=== PATIENT | female | born 2000 | race Caucasian/White ===

== ENCOUNTER 2019-11-29 13:49 | Emergency (ER) | payer OTHER, SELFPAY ==
[2019-11-29 13:52] VITALS: BP 124/65; PULSE 140; RESP 24; TEMP 36.4; O2SAT 99; BMI 20.6
--- NOTE | 2019-11-29 14:01 | W.ED.FEMALGU ---
HPI - Female Genitourinary General: Chief complaint: Vaginal Bleeding Stated complaint: possible misscarige Time Seen by Provider: 11/29/19 14:01 History of Present Illness: HPI Narrative: 18-year-old female G0, P0. States she had a normal period 2 weeks ago she stopped taking her control pills 40 days ago and this morning she began having abdominal pain cramping like a very heavy. She is worried she may be . She denies any dysuria urgency or flank pain. She is extremely anxious when seen today MD elicited complaint: vaginal bleeding Onset (ago): hour(s) Severity: moderate Female Urogenital Radiation: Suprapubic Quality of pain: cramping Consistency: constant Vaginal discharge: none Vaginal bleeding: heavy Urinary symptoms: Dysuria Exacerbating factors: none Relieving factors: none Associated symptoms: Deny abdominal pain, short of breath, fevers/chills, headache(s), nausea, rash, seizures, syncope, vaginal discharge or weakness Treatment prior to arrival: none Sexual activity: Yes Possible : unsure if Date of Last Menstrual Period: 11/27/19 Review of Systems Const: Denies: fever(s), chills, body aches, change in appetite, fatigue or malaise ENMT: Denies: throat pain, ear or mastoid pain, nasal discharge or nasal congestion Card: Denies: syncope Resp: Denies: dyspnea, productive cough or non-productive cough GI: Denies: abdominal pain or nausea : Denies: vaginal discharge Skin/Breast: Denies: rash or pruritus Neuro: Denies: headache(s) PFS ED PFSH: Medical History (Updated 11/29/19 @ 15:26 by Enrique Gorman DO) No significant past medical history Surgical History (Updated 11/29/19 @ 14:34 by Enrique Gorman DO) No significant past surgical history Social History (Updated 11/29/19 @ 14:34 by Enrique Gorman DO) Smoking and tobacco status: never smoked Alcohol intake: current Alcohol intake frequency: 0-2 Drinks per Day Additional social history: Patient uses vaping Female Reproductive History: Date of last menstrual period: 11/27/19 Physical Exam Const: COMMON NORMALS: no acute distress GENERAL APPEARANCE: cooperative and comfortable ORIENTATION/CONSCIOUSNESS: Yes awake, Yes oriented to person, Yes oriented to place and Yes oriented to time HENMT: COMMON NORMALS: normocephalic, atraumatic and hearing grossly normal bilaterally HEAD & SCALP: normocephalic and atraumatic Eye: COMMON NORMALS: Equal, round and reactive pupils present, EOMs intact bilaterally, conjunctivae normal and no scleral icterus CONJUNCTIVA: Yes conjunctivae normal PUPIL: Yes Equal, round and reactive pupils present Neck/C-Spine: COMMON NORMALS: no JVD Resp: COMMON NORMALS: normal respiratory effort, No retractions, No use of accessory muscles and clear to auscultation bilaterally AUSCULTATION: clear to auscultation bilaterally Cardio: COMMON NORMALS: no JVD, regular rate, regular rhythm and No murmurs present (Cardio) RATE: regular rate RHYTHM: regular rhythm GI: COMMON NORMALS: Soft to palpation and No hepatosplenomegaly present AUSCULTATION: Yes normoactive bowel sounds PALPATION: Yes Soft to palpation, No Tenderness to palpation present (GI), No Guarding due to palpation present (GI) and Yes No hepatosplenomegaly present Extremity: COMMON NORMALS: normal to inspection, capillary refill normal, no clubbing, cyanosis or edema, no calf tenderness and no pedal edema Neuro: SENSORIUM/ORIENTATION: Yes oriented to person, Yes oriented to place and Yes oriented to time Skin: COMMON NORMALS: no rashes or lesions noted GENERAL SKIN EXAM: no rashes or lesions noted Course Vital Signs: Vital signs: Vital Signs Temperature 97.6 F 11/29/19 13:52 Pulse Rate 92 11/29/19 15:36 Respiratory Rate 16 11/29/19 15:36 Blood Pressure 111/66 11/29/19 15:36 Pulse Oximetry 97 11/29/19 15:36 MDM - Female MDM Narrative: Medical decision making narrative: test negative. With a serum quant less than 5. Discussed with the patient that missing the control is probably what precipitated this. Recommend allowing this. To finish and then start a new package of oral contraceptive pills. Lab Data: Labs: Lab Results 11/29/19 11/29/19 11/29/19 Range/Units 14:25 14:25 14:25 WBC 11.3 (4.5-13.0) 10^3/ uL RBC 4.25 (4.1-5.3) 10^6/u L Hgb 12.8 (11.5-15.3) g/dL Hct 39.2 (37.0-47.0) % MCV 92.2 (81-99) fL MCH 30.1 (28.0-34.0) pg MCHC 32.7 (30.0-36.0) g/dL RDW 12.7 (12.1-15.1) % Plt Count 288 (130-400) 10^3/c mm MPV 8.7 (7.4-10.4) fL Neut % (Auto) 79.7 % Lymph % (Auto) 15.4 % [place] % (Auto) 4.2 % Eos % (Auto) 0.0 % Baso % (Auto) 0.4 % Neut # (Auto) 9.04 H (1.8-8.0) 10^3/u L Lymph # (Auto) 1.7 (1.5-6.5) 10^3/u L [place] # (Auto) 0.5 (0.2-0.9) 10^3/u L Eos # (Auto) 0.0 (0.0-0.8) 10^3/u L Baso # (Auto) 0.0 (0.0-0.1) 10^3/u L Nucleated RBC % (a uto) 0 % Nucleated RBCs # 0.0 /100WBC PT 14.70 (12.1-14.9) SECO NDS INR 1.12 (0.8-1.2) APTT 29.0 (23.9-36.7) SECO NDS Sodium 137 (136-145) mmol/L Potassium 4.4 (3.5-5.1) mmol/L Chloride 100 (98-107) mmol/L Carbon Dioxide 16 L (22-29) mmol/L Anion Gap 25.4 H (5-19) BUN 9 (6-20) mg/dL Creatinine 0.9 (0.5-0.9) mg/dL GFR Calculation 79.8 L (90-130) mL/min Glucose 95 (65-115) mg/dL Calculated Osmolal ity 280 L (285-295) mOsm/k g Calcium 8.8 (8.5-10.5) mg/dL Total Bilirubin 0.5 (0.15-1.2) mg/dL AST 55 H (0-32) U/L ALT 45 H (0-33) U/L Alkaline Phosphata se 65 (35-105) IU/L Total Protein 7.5 (6.6-8.7) g/dL Albumin 4.6 (3.5-5.2) g/dL Globulin 2.9 (1.3-4.6) g/dL Ser , Oliver i-Qnt 0.50 mIU/mL Blood Type Rho(D) Type 11/29/19 Range/Units 14:25 WBC (4.5-13.0) 10^3/ uL RBC (4.1-5.3) 10^6/u L Hgb (11.5-15.3) g/dL Hct (37.0-47.0) % MCV (81-99) fL MCH (28.0-34.0) pg MCHC (30.0-36.0) g/dL RDW (12.1-15.1) % Plt Count (130-400) 10^3/c mm MPV (7.4-10.4) fL Neut % (Auto) % Lymph % (Auto) % [place] % (Auto) % Eos % (Auto) % Baso % (Auto) % Neut # (Auto) (1.8-8.0) 10^3/u L Lymph # (Auto) (1.5-6.5) 10^3/u L [place] # (Auto) (0.2-0.9) 10^3/u L Eos # (Auto) (0.0-0.8) 10^3/u L Baso # (Auto) (0.0-0.1) 10^3/u L Nucleated RBC % (a uto) % Nucleated RBCs # /100WBC PT (12.1-14.9) SECO NDS INR (0.8-1.2) APTT (23.9-36.7) SECO NDS Sodium (136-145) mmol/L Potassium (3.5-5.1) mmol/L Chloride (98-107) mmol/L Carbon Dioxide (22-29) mmol/L Anion Gap (5-19) BUN (6-20) mg/dL Creatinine (0.5-0.9) mg/dL GFR Calculation (90-130) mL/min Glucose (65-115) mg/dL Calculated Osmolal ity (285-295) mOsm/k g Calcium (8.5-10.5) mg/dL Total Bilirubin (0.15-1.2) mg/dL AST (0-32) U/L ALT (0-33) U/L Alkaline Phosphata se (35-105) IU/L Total Protein (6.6-8.7) g/dL Albumin (3.5-5.2) g/dL Globulin (1.3-4.6) g/dL Ser , Oliver i-Qnt mIU/mL Blood Type A Positive Rho(D) Type Positive Discharge Plan Discharge Patient Disposition: Home Clinical Impression: Menometrorrhagia Condition: Stable Prescriptions: No Action Midol 500-25 mg Tablet 2 tab PO PRN RF: 0 ibuprofen 200 mg Tablet 400 mg PO PRN RF: 0 Ortho Tri-Cyclen (28) 0.18/0.215/0.25 mg-35 mcg (28) Tablet 1 tab PO DAILY RF: 0 hydroxyzine pamoate 25 mg Capsule See Rx Instructions .ROUTE .COMPLEX RF: 0 escitalopram oxalate 10 mg tablet 10 mg PO DAILY RF: 0 Discharge Orders: Discharge Order (Routine); Ordered 11/29/19 Ordered By: Enrique Gorman Referrals: Matt Ray MD [Primary Care Provider] - Discharge Diet: Usual diet Discharge Activity: Resume usual activity Activity Restrictions/Additional Instructions: When vaginal bleeding stopped start a new pack of oral contraceptive pills Discharge Date/Time: 11/29/19 15:36 Coding Level of Care Code ED 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
[2019-11-29 14:38] LABS: Basophils % 0.4 %; Hematocrit 39.2 % (37.0-47.0); Hemoglobin 12.8 g/dL (11.5-15.3); Lymphocytes # 1.7 10^3/uL (1.5-6.5); Lymphocytes % 15.4 %; Mean Corpuscular HGB Conc 32.7 g/dL (30.0-36.0); Mean Corpuscular Hemoglobin 30.1 pg (28.0-34.0); Mean Corpuscular Volume 92.2 fL (81-99); Mean Platelet Volume 8.7 fL (7.4-10.4); Monocytes # 0.5 10^3/uL (0.2-0.9); Monocytes % 4.2 %; Neutrophils # 9.04 10^3/uL (1.8-8.0); Neutrophils % 79.7 %; Nucleated Red Blood Cells % 0 %; Platelet Count 288 10^3/cmm (130-400); Red Blood Count 4.25 10^6/uL (4.1-5.3); Red Cell Distribution Width 12.7 % (12.1-15.1); White Blood Count 11.3 10^3/uL (4.5-13.0)
[2019-11-29 15:04] LABS: INR 1.12 (0.8-1.2)
[2019-11-29 15:13] LABS: Alanine Aminotransferase 45 U/L (0-33); Albumin Level 4.6 g/dL (3.5-5.2); Alkaline Phosphatase 65 IU/L (35-105); Anion Gap 25.4 (5-19); Aspartate Amino Transferase 55 U/L (0-32); Blood Urea Nitrogen 9 mg/dL (6-20); Calcium 8.8 mg/dL (8.5-10.5); Carbon Dioxide 16 mmol/L (22-29); Chloride 100 mmol/L (98-107); Globulin 2.9 g/dL (1.3-4.6); Glomerular Filtration Rate 79.8 mL/min (90-130); Glucose 95 mg/dL (65-115); Osmolality Calculated 280 mOsm/kg (285-295); Potassium 4.4 mmol/L (3.5-5.1); Sodium 137 mmol/L (136-145); Total Bilirubin 0.5 mg/dL (0.15-1.2); Total Protein 7.5 g/dL (6.6-8.7)
[2019-11-29 15:36] VITALS: BP 111/66; PULSE 92; RESP 16; O2SAT 97
== END 2019-11-29 15:36 | disposition home or self-care (01) ==
PROVIDERS: Emergency Provider Family Medicine; PCP Family Medicine
DX: N92.1 Excessive and frequent menstruation with irregular cycle (principal)
CPT/HCPCS: 12345; 80053; 84702; 85025; 85610; 85730; 86900; 99283

== ENCOUNTER → 2019-12-27 13:55 | Outpatient (BNVA) | payer BC, SELFPAY | PROVIDERS: PCP Family Medicine; Visit Provider Family Medicine | DX: Z11.59 Encounter for screening for other viral diseases (principal) | CPT/HCPCS: 87635 ==

== ENCOUNTER 2020-01-03 16:27 | Inpatient (IN) | payer SELFPAY ==
[2020-01-03 16:32] VITALS: BP 133/88; PULSE 114; RESP 14; TEMP 37.1; O2SAT 100; BMI 20.5
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
[2020-01-03 17:43] LABS: Add Urine Microscopic? NO
[2020-01-03 17:52] LABS: Urine Appearance Clear (CLEAR); Urine Color Yellow (Yellow)
[2020-01-03 17:53] LABS: Bilirubin Urine Neg (Negative); Blood Urine Neg (Negative); Glucose Urine UA Norm (Normal); Ketones Urine 2+ (Negative); Leukocyte Esterase Urine Negative (Negative); Nitrate Urine Negative (Negative); Protein Urine Neg (Negative); Urobilinogen Urine Norm (Negative); pH Urine 5 (5-7)
[2020-01-03 18:02] LABS: Amphetamines Screen Urine Negative (Negative); Barbiturates Screen Urine Negative (Negative); Benzodiazepines Screen Urine Negative (Negative); Cocaine Screen Urine Negative (Negative); Opiate Screen Urine Negative (Negative); PCP Screen Urine Negative (Negative); THC Screen Urine Negative (Negative)
[2020-01-03 18:03] LABS: Basophils % 0.3 %; Lymphocytes # 1.5 10^3/uL (0.8-4.8); Lymphocytes % 12.2 %; Mean Corpuscular HGB Conc 32.5 g/dL (30.0-36.0); Mean Corpuscular Hemoglobin 30.1 pg (28.0-34.0); Mean Corpuscular Volume 92.6 fL (81-99); Mean Platelet Volume 8.6 fL (7.4-10.4); Monocytes % 8.5 %; Neutrophils # 9.51 10^3/uL (1.8-7.7); Neutrophils % 78.7 %; Nucleated Red Blood Cells % 0 %; Platelet Count 257 10^3/cmm (130-400); Red Blood Count 4.32 10^6/uL (4.1-5.3); Red Cell Distribution Width 13.2 % (12.1-15.1); White Blood Count 12.1 10^3/uL (4.0-10.0)
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
[2020-01-03] MEDS: sodium chloride 0.9% 1,000 ML 999 ML IV (18:32)
[2020-01-03 18:33] VITALS: RESP 18; O2SAT 98
[2020-01-03] MEDS: morphine 4 mg/mL SDV 1 mL IVP (18:33)
[2020-01-03] MEDS: ondansetron 2 mg/ML SDV 2 mL 4 MG IVP (18:33)
[2020-01-03 18:48] LABS: Alanine Aminotransferase 31 U/L (0-33); Albumin Level 4.5 g/dL (3.5-5.2); Alkaline Phosphatase 108 IU/L (35-105); Anion Gap 20.2 (5-19); Aspartate Amino Transferase 35 U/L (0-32); Blood Urea Nitrogen 9 mg/dL (6-20); Calcium 9.6 mg/dL (8.5-10.5); Carbon Dioxide 22 mmol/L (22-29); Chloride 97 mmol/L (98-107); Globulin 2.7 g/dL (1.3-4.6); Glomerular Filtration Rate 90.5 mL/min (90-130); Glucose 104 mg/dL (65-115); Osmolality Calculated 279 mOsm/kg (285-295); Potassium 4.2 mmol/L (3.5-5.1); Salicylate 0.8 mg/dL (3-10); Sodium 135 mmol/L (136-145); Total Protein 7.2 g/dL (6.6-8.7)
[2020-01-03 18:56] LABS: Acetaminophen < 5.0 ug/mL (10-30); Alcohol Level < 10 mg/dL (0-10)
[2020-01-03 18:59] LABS: HCG, Serum Qual Negative (Negative)
[2020-01-03 20:30] VITALS: BP 130/84; PULSE 88; RESP 18; O2SAT 99
--- NOTE | 2020-01-03 20:31 | PC.NURSE ---
pt report called to Phillip MORENO in SBAR format.
[2020-01-03 21:08] VITALS: BP 121/64; PULSE 91; RESP 16; TEMP 37.5; O2SAT 99
--- NOTE | 2020-01-03 21:18 | PC.NURSE ---
Pt arrived to unit via wheel chair from ER. Pt noted with large abrasion to chin, currently draining red tinged drainage. Pt also noted to have bruises to bilateral anterior upper and lower legs, and a tattoo to upper right chest.
[2020-01-03] MEDS: hyDROXYzine 25 mg Capsule 50 MG PO (21:25)
[2020-01-03] MEDS: ibuprofen 600 mg Tablet PO (21:25)
[2020-01-03] MEDS: trazodone 50 mg Tablet PO (21:25)
--- NOTE | 2020-01-03 21:46 | PC.NURSE ---
Skin assessment revealed right orbit bruising, abrasion to skin with dressing applied in ED. Bruises to both knees and legs.
[2020-01-04 06:00] VITALS: BP 90/59; PULSE 70; RESP 16; TEMP 37.2; O2SAT 99
[2020-01-04] MEDS: ibuprofen 600 mg Tablet PO ×3 (08:31→20:22)
[2020-01-04] MEDS: escitalopram 10 mg Tablet PO ×2 (08:31→14:50)
[2020-01-04 13:20] VITALS: BP 98/62; PULSE 80; RESP 18; TEMP 36.5; O2SAT 98
[2020-01-04 13:47] VITALS: BP 98/62; PULSE 80; RESP 18; TEMP 36.5; O2SAT 80
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
--- NOTE | 2020-01-04 19:57 | PC.NURSE ---
The patient's mother called. The parents want the patient discharged tonight. Spoke to the patient who also wants discharge tonight. Called Dr. Monsivais. Dr. Monsivais will enter discharge order. Updated the patient and her mother.
--- NOTE | 2020-01-04 20:01 | PC.NURSE ---
The dressing to the patient's chin is dry and intact.
[2020-01-04 20:02] VITALS: BP 120/75; PULSE 93; RESP 18; TEMP 36.8; O2SAT 98
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
[2020-01-04] MEDS: trazodone 50 mg Tablet PO (20:23)
[2020-01-04] MEDS: hyDROXYzine 25 mg Capsule 50 MG PO (20:23)
[2020-01-04 20:32] VITALS: BP 120/75; PULSE 93; RESP 18; TEMP 36.8; O2SAT 98
--- NOTE | 2020-01-04 20:59 | PC.NURSE ---
The patient is being discharged. Her parents are her to transport the patient to their home. Spoke to the patient with her parents present. The patient denied thoughts of self harm or suicide. The parents said they can supervise the patient 14/10. Patient's belongs returned. Patient given printed prescriptions and med list.
== END 2020-01-04 20:50 | disposition home or self-care (01) | DRG 897 ==
LOC: ER 16:49 → NP 19:21
PROVIDERS: Emergency Medicine; Admitting Provider Psychiatry & Neurology Psychiatry; PCP Family Medicine; Visit Provider Psychiatry & Neurology Psychiatry
DX: F10.129 Alcohol abuse with intoxication, unspecified (principal); R45.851 Suicidal ideations; S01.81XA Laceration without foreign body of other part of head, initial encounter; W19.XXXA Unspecified fall, initial encounter; F17.210 Nicotine dependence, cigarettes, uncomplicated
CPT/HCPCS: 12345; 36415; 70450; 70486; 72125; 80053; 80306; 80307; 81003; 84703; 85025; 96375; 99284; J2270; J2405; J7030

== ENCOUNTER 2020-01-06 21:18 | Emergency (ER) | payer SELFPAY ==
[2020-01-06 21:25] VITALS: BP 113/73; PULSE 112; RESP 16; TEMP 36.7; O2SAT 97; BMI 20.5
--- NOTE | 2020-01-06 21:42 | W.ED.SKABFB ---
HPI - Skin/Abscess/Foreign Bdy General: Chief complaint: Skin/Abscess/Foreign Body Stated complaint: lac on chin and hand Time Seen by Provider: 01/06/20 21:20 History of Present Illness: HPI narrative: 19-year-old female patient presents to the emergency department with possible chin infection. She reports fell on the pavement on 01/01/2020, sustaining wound to the chin. She presented to the emergency department on 01/03/2020 due to pain, CT scans of the face negative for foreign body/fracture. She reports today, onset of purulent fluid, states Band-Aid is causing irritation to the face. She reports placing hydrogen peroxide and Neosporin inside the wound. MD complaint: laceration Tetanus up to date: yes Location: face Severity: mild Pain Consistency: intermittent Associated symptoms: Reports no associated symptoms; Deny chills, fever(s), nausea or vomiting Treatments prior to arrival: bandages and attempted to drain pus at home Review of Systems General: Reports: 10 or more systems reviewed and unremarkable except in HPI and below Const: Denies: fever(s), chills or diaphoresis Eyes: Denies: blurry vision or eye redness ENMT: Denies: throat pain, dental pain or disequilibrium Card: Denies: chest pain, palpitations or irregular heart rhythm Resp: Denies: dyspnea, productive cough, non-productive cough or wheezing GI: Denies: abdominal pain, nausea or vomiting : Denies: difficulty voiding or dysuria Musc: Denies: back pain Skin/Breast: Reports: erythema (Chin) and skin tenderness (Chin); Denies: rash or pruritus Neuro: Denies: headache(s), weakness in extremities or behavioral changes Sunny/Lymph: Denies: easy bruising PFS ED PFSH: Medical History (Updated 01/06/20 @ 21:48 by GRAHAM Mcadams) No significant past medical history Surgical History No significant past surgical history Social History Smoking and tobacco status: never smoked Alcohol intake: current Alcohol intake frequency: 0-2 Drinks per Day Additional social history: Patient uses vaping Female Reproductive History: Date of last menstrual period: 10/10/20 Physical Exam Const: COMMON NORMALS: no acute distress, patient oriented x3, healthy appearing and alert GENERAL APPEARANCE: cooperative, comfortable and well hydrated HENMT: COMMON NORMALS: normocephalic, Normal external nose present and moist oral mucous membranes HEAD & SCALP: normocephalic NOSE: Normal external nose present Eye: COMMON NORMALS: Equal, round and reactive pupils present and EOMs intact bilaterally GENERAL EYE: appearance normal, both eyes and all related structures PUPIL: Yes Equal, round and reactive pupils present Neck/C-Spine: COMMON NORMALS: full ROM and no lymphadenopathy GENERAL: Yes normal visual inspection and Yes trachea midline CERVICAL SPINE: Yes cervical ROM normal Lymph: LYMPHATIC: no lymphadenopathy noted Chest: COMMONS NORMALS: normal inspection of the chest Resp: COMMON NORMALS: normal respiratory effort and clear to auscultation bilaterally AUSCULTATION: clear to auscultation bilaterally Cardio: COMMON NORMALS: regular rhythm, S1 normal heart sound present and S2 normal heart sound present RHYTHM: regular rhythm HEART SOUNDS: S1 normal heart sound present and S2 normal heart sound present GI: COMMON NORMALS: Soft to palpation and non-tender INSPECTION: Yes normal to inspection PALPATION: Yes Soft to palpation : COMMON NORMALS: Yes no CVA tenderness BLADDER/KIDNEY EXAM: Yes no CVA tenderness Back/Pelvis: COMMON NORMALS: no CVA tenderness and thoracic and lumbar spine normal to inspection Extremity: COMMON NORMALS: normal to inspection and capillary refill normal Neuro: COMMON NORMALS: patient oriented x3 and no focal motor deficits SENSORIUM/ORIENTATION: Yes alert Psych: COMMON NORMALS: mental status grossly normal, Normal thought process present and cooperative ACTIVITY/MOTOR BEHAVIOR: Yes appropriate eye contact THOUGHT PROCESS: Normal thought process present Skin: COMMON NORMALS: no rashes or lesions noted and turgor normal GENERAL SKIN EXAM: no rashes or lesions noted and turgor normal WOUNDS: Yes wounds noted (Healing wound noted to the right hand, no erythema.) size (2cm x 2 cm), drainage (no erythema, slight edema surrounding the wound) purulent and open Course ED course: 19-year-old female patient presents to the emergency department with wound concern. She reports sustained a fall on Friday night, hit pavement, sustained wound to the chin. She reports did not seek treatment until Friday, 2 days later. Wound with purulent drainage, no surrounding erythema suggestive of cellulitis. Wound culture was obtained, patient placed on clindamycin due to severe penicillin allergy, anaphylaxis. This will cover MRSA. She is advised not to express drainage from the wound or cleanse with hydrogen peroxide. Vies to keep the wound covered and to wash hands frequently. Vital Signs: Vital signs: Vital Signs Temperature 98.1 F 01/06/20 21:25 Pulse Rate 112 H 01/06/20 21:25 Respiratory Rate 16 01/06/20 21:25 Blood Pressure 113/73 01/06/20 21:25 Pulse Oximetry 97 01/06/20 21:25 Discharge Plan Discharge Patient Disposition: Home Clinical Impression: Wound discharge, Infected wound Condition: Stable Prescriptions: New clindamycin HCl 300 mg capsule 300 mg PO Q6H 7 Days Qty: 28 RF: 0 No Action ibuprofen 200 mg Tablet 400 mg PO PRN RF: 0 norgestimate-ethinyl estradiol [Ortho Tri-Cyclen (28)] 0.18/0.215/0.25 mg-35 mcg (28) Tablet 1 tab PO DAILY RF: 0 hydroxyzine pamoate 25 mg Capsule 25 mg PO Q6H PRN (Reason: anxiety) RF: 0 trazodone 50 mg Tablet 50 mg PO BEDTIME PRN (Reason: Sleep) 30 Days Qty: 30 RF: 1 escitalopram oxalate 10 mg Tablet 20 mg PO DAILY 30 Days Qty: 30 RF: 1 Lexapro 20 mg tablet 20 mg PO DAILY 30 Days Qty: 30 RF: 1 Discharge Orders: Discharge Order (Routine); Ordered 01/06/20 Ordered By: Shana Cummins Referrals: Matt Ray MD [Primary Care Provider] - Discharge Diet: Usual diet Discharge Activity: Resume usual activity Patient Instructions: Acute Wound Care (ED) Activity Restrictions/Additional Instructions: Keep the wound covered while draining May apply paper tape to the area to help with skin irritation around the wound Take clindamycin until all gone, even if better Do not express drainage from the wound, do not apply hydrogen peroxide to the wound, cleanse wound twice daily with soap and water, pat dry Return to emergency department if you develop redness, swelling under the chin or increased pain. Wound culture is pending, follow-up with Dr. Ray next week for wound check. Coding Level of Care Code ED Inside Sales Account Executive for Chg Fwd Exam Comprehensive
--- NOTE | 2020-01-07 10:53 | DCPLANNER ---
mine manager had message to schedule a follow up appointment for patient with primary care physician. mine manager called [facility] [place], a follow up appointment was scheduled for Saturday, January 11, [address] at 9:[address] Ray. mine manager called patient with appointment information, she stated that she would attend the appointment.
--- NOTE | 2020-01-14 16:46 | DCPLANNER ---
Patient had a follow up appointment scheduled for 01.11.20 with [facility] - patient did not attend appointment.
== END 2020-01-06 21:54 | disposition home or self-care (01) ==
PROVIDERS: Emergency Provider Nurse Practitioner Family; PCP Family Medicine
DX: L08.89 Other specified local infections of the skin and subcutaneous tissue (principal)
CPT/HCPCS: 12345; 87070; 87075; 87077; 87205; 99282

== ENCOUNTER → 2020-03-24 13:00 | Outpatient (BNVA) | payer OTHER, SELFPAY | PROVIDERS: PCP Family Medicine; Visit Provider Nurse Practitioner | DX: Z20.828 Contact with and (suspected) exposure to other viral communicable diseases (principal) | CPT/HCPCS: 87635 ==

== ENCOUNTER 2020-08-11 16:22 | Emergency (ER) | payer BC, SELFPAY ==
[2020-08-11 16:42] VITALS: BP 107/71; PULSE 85; RESP 18; TEMP 36.8; O2SAT 98; BMI 20.5
--- NOTE | 2020-08-11 19:45 | W.ED.NAVMDI ---
HPI - Nausea/Vomiting/Diarrhea General: Chief complaint: Nausea/Vomiting/Diarrhea Stated complaint: STATES VOMITING BLOOD Time Seen by Provider: 08/11/20 19:45 Source: patient Mode of arrival: ambulatory Limitations: no limitations History of Present Illness: HPI Narrative: Patient is a 19-year-old female who presents to ED today with a complaint of nausea and vomiting. Patient tells me several hours ago before she was headed into work she became very nauseous and started vomiting. She states she has vomited a total of 5 times. She tells me she was concerned because the vomit looked very dark and she was concerned there could be blood. No bright red hematemesis. She states that maybe there was some coffee-ground looking particles in the vomit. She is not complaining of abdominal pain currently. Normal bowel movements. No fevers. No bad food exposures. No sick contacts. When asked specifically about alcohol use she does tell me that she often binge drinks. She states she did have a large amount of alcohol last night. MD elicited complaint: nausea and vomiting Pertinent past history: alcohol abuse Onset (ago): hour(s) Associated nausea: Yes Associated abdominal pain: No Location of pain: None Severity: mild Exacerbating factors: eating and alcohol intake Relieving factors: none Context: alcohol abuse Associated symtoms: Reports no associated symptoms and nausea; Denies change in vision, chest pain, dysuria, fatigue, headache(s), malaise, palpitations or syncope Review of Systems Const: Denies: fever(s), chills, body aches, fatigue or malaise Eyes: Denies: change in vision or blurry vision ENMT: Denies: throat pain or odynophagia Card: Denies: chest pain, palpitations, irregular heart rhythm, lightheadedness, syncope or dyspnea on exertion Resp: Denies: dyspnea, productive cough or pain on inspiration GI: Reports: nausea and vomiting; Denies: abdominal pain, heartburn, diarrhea, change in bowel habits, change in stool character, hematochezia or melena : Denies: flank pain or dysuria Musc: Denies: neck pain, back pain or joint pain Skin/Breast: Denies: rash Neuro: Denies: headache(s), numbness in extremities, weakness in extremities or sensory changes Psych: Denies: suicidal ideation or homicidal ideation PFS ED PFSH: Medical History (Updated 08/11/20 @ 21:01 by NARESH Ferrer) No significant past medical history Surgical History No significant past surgical history Social History Smoking and tobacco status: never smoked Alcohol intake: current Alcohol intake frequency: 0-2 Drinks per Day Additional social history: Patient uses vaping Female Reproductive History: Date of last menstrual period: 08/11/20 Physical Exam Const: COMMON NORMALS: no acute distress, average body habitus, patient oriented x3, no limitations, healthy appearing, alert and well nourished GENERAL APPEARANCE: cooperative ORIENTATION/CONSCIOUSNESS: Yes awake, Yes oriented to person, Yes oriented to place and Yes oriented to time HENMT: COMMON NORMALS: normocephalic and atraumatic HEAD & SCALP: normocephalic and atraumatic Resp: COMMON NORMALS: normal respiratory effort and clear to auscultation bilaterally AUSCULTATION: clear to auscultation bilaterally Cardio: COMMON NORMALS: regular rate and regular rhythm RATE: regular rate RHYTHM: regular rhythm GI: COMMON NORMALS: Normal to inspection, nondistended, normoactive bowel sounds present, Soft to palpation, No hepatosplenomegaly present and no masses INSPECTION: Yes normal to inspection AUSCULTATION: Yes normoactive bowel sounds PALPATION: Yes Soft to palpation, Yes Tenderness to palpation present (GI) (mild upper abdominal pain-non surgical exam) and Yes No hepatosplenomegaly present Extremity: COMMON NORMALS: normal to inspection Neuro: JACOBY COMA SCALE: document GCS findings Jacoby coma scale eye opening: Spontaneous Jacoby coma scale verbal response: Orientated Jacoby coma scale motor response: Obey commands [place] coma scale total score: 15 COMMON NORMALS: patient oriented x3 and gait normal SENSORIUM/ORIENTATION: Yes alert, Yes oriented to person, Yes oriented to place and Yes oriented to time Skin: COMMON NORMALS: no rashes or lesions noted GENERAL SKIN EXAM: no rashes or lesions noted TRAUMA: no lacerations or abrasions Course Vital Signs: Vital signs: Vital Signs Temperature 98.3 F 08/11/20 16:42 Pulse Rate 70 08/11/20 20:11 Respiratory Rate 17 08/11/20 20:11 Blood Pressure 109/67 08/11/20 20:11 Pulse Oximetry 100 08/11/20 20:11 MDM - Nausea/Vomiting/Diarrhea MDM Narrative: Medical decision making narrative: Patient feels better after IV fluids, Zofran, Ativan. She has had no episodes of vomiting while here. History seems consistent with an alcoholic gastritis. Will place patient on PPI/Carafate. Recommend alcohol moderation. Discussed treatment options if she feels like she cannot control her alcohol use. Recommend follow-up with primary care. If symptoms persist she may require referral to GI for endoscopy. Return to ED precautions given. Lab Data: Labs: Lab Results 08/11/20 08/11/20 08/11/20 Range/Units 20:10 20:10 20:10 WBC 8.7 (4.0-10.0) 10^3/ uL RBC 4.49 (4.1-5.3) 10^6/u L Hgb 13.4 (11.5-15.3) g/dL Hct 40.8 (37.0-47.0) % MCV 90.9 (81-99) fL MCH 29.8 (28.0-34.0) pg MCHC 32.8 (30.0-36.0) g/dL RDW 13.1 (12.1-15.1) % Plt Count 288 (130-400) 10^3/c mm MPV 8.6 (7.4-10.4) fL Neut % (Auto) 66.8 % Lymph % (Auto) 28.0 % Lucas % (Auto) 4.3 % Eos % (Auto) 0.1 % Baso % (Auto) 0.6 % Neut # (Auto) 5.81 (1.8-7.7) 10^3/u L Lymph # (Auto) 2.4 (0.8-4.8) 10^3/u L Lucas # (Auto) 0.4 (0.2-0.9) 10^3/u L Eos # (Auto) 0.0 (0.0-0.8) 10^3/u L Baso # (Auto) 0.1 (0.0-0.1) 10^3/u L Nucleated RBC % (a uto) 0 % Nucleated RBCs # 0.0 /100WBC Sodium 137 (136-145) mmol/L Potassium 3.8 (3.5-5.1) mmol/L Chloride 98 (98-107) mmol/L Carbon Dioxide 21 L (22-29) mmol/L Anion Gap 21.8 H (5-19) BUN 6 (6-20) mg/dL Creatinine 0.6 (0.5-0.9) mg/dL GFR Calculation 126.2 (90-130) mL/min Glucose 87 (65-115) mg/dL Calculated Osmolal ity 281 L (285-295) mOsm/k g Calcium 9.1 (8.5-10.5) mg/dL Total Bilirubin 0.5 (0.15-1.2) mg/dL AST 26 (0-32) U/L ALT 20 (0-33) U/L Alkaline Phosphata se 85 (35-105) IU/L Total Protein 7.7 (6.6-8.7) g/dL Albumin 4.8 (3.5-5.2) g/dL Globulin 2.9 (1.3-4.6) g/dL Lipase 30 (13-60) U/L HCG, Qual Negative (Negative) Ethyl Alcohol 14 H (0-10) mg/dL Discharge Plan Discharge Patient Disposition: Home Clinical Impression: Alcohol abuse Gastritis Qualifiers: Gastritis type: alcoholic Chronicity: acute Gastritis bleeding: with bleeding Qualified Code(s): K29.21 - Alcoholic gastritis with bleeding Condition: Stable Prescriptions: New Zofran 4 mg tablet 4 mg PO Q6H PRN (Reason: nausea and vomiting) Qty: 14 RF: 0 Carafate 1 gram tablet 1 g PO TID 14 Days Qty: 42 RF: 0 pantoprazole 20 mg tablet,delayed release (DR/EC) 20 mg PO DAILY 14 Days Qty: 14 RF: 0 No Action ibuprofen 200 mg Tablet 400 mg PO PRN RF: 0 norgestimate-ethinyl estradiol [Ortho Tri-Cyclen (28)] 0.18/0.215/0.25 mg-35 mcg (28) Tablet 1 tab PO DAILY@1000 RF: 0 hydroxyzine pamoate 25 mg Capsule 25 mg PO Q6H PRN (Reason: anxiety) RF: 0 trazodone 50 mg Tablet 50 mg PO BEDTIME PRN (Reason: Sleep) 30 Days Qty: 30 RF: 1 Lexapro 20 mg tablet 20 mg PO DAILY@1000 RF: 0 Discharge Orders: Discharge ED (Routine); Ordered 08/11/20 Ordered By: Olamide Grande Referrals: Matt Ray MD [Primary Care Provider] - Patient Instructions: Alcohol Abuse, Gastritis (ED), At-Risk Alcohol Use (ED) Activity Restrictions/Additional Instructions: Begin medications and take them as prescribed. As we discussed please limit alcohol use to a responsible amount. You may reach out to behavioral health care or detox facilities if you feel like you cannot control your alcohol consumption. You need to follow-up with primary care in 3 to 5 days for reevaluation. Return to the emergency department for continued episodes of bloody vomit, severe abdominal pain, bloody stools, or any other concerns you may have. Coding Level of Care Code ED Interactive Media Director for Vonda Hall Exam Comprehensive
[2020-08-11] MEDS: ondansetron 2 mg/ML SDV 2 mL 4 MG IVP (20:09)
[2020-08-11] MEDS: LORazepam 2 mg/mL INJ 1 mL 0.5 MG IVP (20:09)
[2020-08-11] MEDS: sodium chloride 0.9% 1,000 ML 999 ML IV (20:09)
[2020-08-11 20:11] VITALS: BP 109/67; PULSE 70; RESP 17; O2SAT 100
[2020-08-11 20:19] LABS: Basophils # 0.1 10^3/uL (0.0-0.1); Basophils % 0.6 %; Eosinophils % 0.1 %; Hematocrit 40.8 % (37.0-47.0); Hemoglobin 13.4 g/dL (11.5-15.3); Lymphocytes # 2.4 10^3/uL (0.8-4.8); Mean Corpuscular HGB Conc 32.8 g/dL (30.0-36.0); Mean Corpuscular Hemoglobin 29.8 pg (28.0-34.0); Mean Corpuscular Volume 90.9 fL (81-99); Mean Platelet Volume 8.6 fL (7.4-10.4); Monocytes # 0.4 10^3/uL (0.2-0.9); Monocytes % 4.3 %; Neutrophils # 5.81 10^3/uL (1.8-7.7); Neutrophils % 66.8 %; Nucleated Red Blood Cells % 0 %; Platelet Count 288 10^3/cmm (130-400); Red Blood Count 4.49 10^6/uL (4.1-5.3); Red Cell Distribution Width 13.1 % (12.1-15.1); White Blood Count 8.7 10^3/uL (4.0-10.0)
[2020-08-11 20:31] LABS: HCG, Serum Qual Negative (Negative)
[2020-08-11 20:42] LABS: Alanine Aminotransferase 20 U/L (0-33); Albumin Level 4.8 g/dL (3.5-5.2); Alcohol Level 14 mg/dL (0-10); Alkaline Phosphatase 85 IU/L (35-105); Anion Gap 21.8 (5-19); Aspartate Amino Transferase 26 U/L (0-32); Blood Urea Nitrogen 6 mg/dL (6-20); Calcium 9.1 mg/dL (8.5-10.5); Carbon Dioxide 21 mmol/L (22-29); Chloride 98 mmol/L (98-107); Globulin 2.9 g/dL (1.3-4.6); Glomerular Filtration Rate 126.2 mL/min (90-130); Glucose 87 mg/dL (65-115); Lipase 30 U/L (13-60); Osmolality Calculated 281 mOsm/kg (285-295); Potassium 3.8 mmol/L (3.5-5.1); Sodium 137 mmol/L (136-145); Total Bilirubin 0.5 mg/dL (0.15-1.2); Total Protein 7.7 g/dL (6.6-8.7)
--- NOTE | 2020-08-11 20:49 | PC.NURSE ---
patient denied any pain or nausea at this time
[2020-08-11 21:21] VITALS: BP 124/61; PULSE 80; RESP 16
== END 2020-08-11 21:22 | disposition home or self-care (01) ==
PROVIDERS: Emergency Provider Physician Assistant; PCP Family Medicine
DX: K29.21 Alcoholic gastritis with bleeding (principal); F10.10 Alcohol abuse, uncomplicated; Y90.0 Blood alcohol level of less than 20 mg/100 ml
CPT/HCPCS: 80053; 80307; 83690; 84703; 85025; 96361; 96374; 96375; 99283; J2060; J2405; J7030

== ENCOUNTER → 2020-10-20 14:57 | Outpatient (BNVA) | payer BC, SELFPAY | PROVIDERS: PCP Family Medicine; Visit Provider Registered Nurse Neonatal Intensive Care | DX: Z20.822 Contact with and (suspected) exposure to COVID-19 (principal) | CPT/HCPCS: 87635 ==

== ENCOUNTER → 2021-04-12 11:34 | Outpatient (BNVA) | payer BC, SELFPAY | PROVIDERS: PCP Family Medicine; Visit Provider Nurse Practitioner Family | DX: Z20.822 Contact with and (suspected) exposure to COVID-19 (principal) | CPT/HCPCS: 87635 ==

== ENCOUNTER 2021-08-09 13:43 | Emergency (ER) | payer BC, SELFPAY ==
[2021-08-09 13:45] VITALS: PULSE 117; RESP 14; TEMP 36.8; O2SAT 99
[2021-08-09 14:20] LABS: Add Urine Microscopic? NO; Charge for UA Resulting for Rev
[2021-08-09 14:31] LABS: Bilirubin Urine Neg (Negative); Blood Urine Neg (Negative); Glucose Urine UA Norm (Normal); Ketones Urine Negative (Negative); Leukocyte Esterase Urine Negative (Negative); Nitrate Urine Negative (Negative); Protein Urine Neg (Negative); Urine Appearance Clear (CLEAR); Urine Color Yellow (Yellow); Urobilinogen Urine Norm (Negative); pH Urine 6.5 (5-7)
[2021-08-09 14:38] LABS: Amphetamines Screen Urine Negative (Negative); Barbiturates Screen Urine Negative (Negative); Benzodiazepines Screen Urine Negative (Negative); Cocaine Screen Urine Negative (Negative); Opiate Screen Urine Negative (Negative); PCP Screen Urine Negative (Negative); THC Screen Urine Negative (Negative)
--- NOTE | 2021-08-09 15:17 | PC.NURSE ---
1500: Patient called this telegraphic typewriter mechanic to room. Declines CT scans. EDP notified. Patient to sign AMA paperwork prior to d/c. Understands the need to return for any new or worsening symptoms. Also reviewed Head injury precuations with friend that will be with, and watching, patient for next 24 hours. Verbal understanding noted. Reason for decline of tests, financial
[2021-08-09 15:34] LABS: HCG Qualitative Urine. Negative (Negative)
--- NOTE | 2021-08-09 16:48 | ED_ITS ---
HPI - Head Injury General: Chief complaint: Head Injury Stated complaint: Possible concusion Time Seen by Provider: 08/09/21 13:44 History of Present Illness: 20 yo female patient presents to ER atating she had too much to drink last night and fell and hit her head on concrete wall. Pt has an abrasion to right temporal area. Pt states her friends are making her come in because they think she feels off. Pt states other than a minor head ache she feels fine. Pt does c/o neck stiffness but denies any cervical spine tenderness or numbness ot tingling Associated symptoms: Deny confusion, nausea, syncope, vertigo or vomiting Review of Systems Const: Denies: fever(s), chills, body aches, change in appetite, change in weight, fatigue, malaise or diaphoresis Eyes: Denies: change in vision, blurry vision, blind spots, photophobia, eye discomfort, eye discharge, eye redness, floaters or seeing flashes ENMT: Denies: throat pain, uvular edema, enlarged tonsils, odynophagia, hoarseness, mouth pain, swelling of lips/tongue, oral sores, bleeding gums, dental pain, dry mouth, ear or mastoid pain, ear discharge, change in hearing, tinnitus, disequilibrium, nasal discharge, nasal congestion, post nasal drip or sinus pain Card: Denies: chest pain, palpitations, irregular heart rhythm, edema, swelling of feet/ankles, lightheadedness, syncope, pre-syncope, dyspnea on exertion, orthopnea, leg pain with exertion or acrocyanosis Resp: Denies: dyspnea, productive cough, non-productive cough, wheezing, stridor, pain on inspiration, change in phlegm color, hemoptysis or chest congestion GI: Denies: abdominal pain, nausea, vomiting, hematemesis, dysphagia, diarrhea, constipation, GI cramping, change in bowel habits or rectal pain : Denies: flank pain, difficulty voiding, dysuria, urinary frequency, urinary urgency, urinary hesitancy or hematuria Musc: Denies: back pain, extremity pain, extremity swelling, joint pain, joint swelling, joint redness, joint warmth or deformity Skin/Breast: Denies: rash, pruritus, erythema, sores, new lesions, changes in skin color or dry skin Neuro: Denies: headache(s), numbness in extremities, weakness in extremities, sensory changes, lack of coordination, difficulty walking, frequent falls, dizziness, vertigo, confusion, behavioral changes, Slurred speech present, difficulty communicating thoughts or seizure-like activity Psych: Denies: anxiety, depression, suicidal ideation or homicidal ideation Endo: Denies: polyuria, polydipsia, tired all the time, cold intolerance, excessive sweating, flushing, hot flashes or heat intolerance Sunny/Lymph: Denies: easy bruising, easy bleeding, petechiae, purpura, enlarged lymph nodes or tender lymph nodes All/Imm: Denies: urticaria, throat swelling, tongue swelling, facial swelling, acute wheezing or itchy eyes PFSH ED PFSH: Medical History No significant past medical history Surgical History No significant past surgical history Social History Smoking and tobacco status: never smoked Alcohol intake: current Alcohol intake frequency: 0-2 Drinks per Day Additional social history: Patient uses vaping Female Reproductive History: Date of last menstrual period: 08/11/20 Physical Exam Const: COMMON NORMALS: no acute distress, average body habitus, patient oriented x3, no limitations, healthy appearing, alert and well nourished HENMT: THROAT: no uvular edema Neck/C-Spine: COMMON NORMALS: full ROM and no JVD OTHER: states it feels stiff but denies tenderness to cervical spine Chest: COMMONS NORMALS: normal inspection of the chest, normal palpation of entire chest wall, normal inspection of the breasts and normal palpation of the breasts Breast/axilla inspection: Yes normal inspection of the breasts BREAST/AXILLA PALPATION: Yes normal palpation of the breasts Resp: COMMON NORMALS: normal respiratory effort, No retractions, No use of accessory muscles, clear to auscultation bilaterally and percussion normal AUSCULTATION: clear to auscultation bilaterally PERCUSSION: percussion normal Cardio: COMMON NORMALS: no JVD, regular rate, regular rhythm, S1 normal heart sound present, S2 normal heart sound present, No gallops present (Cardio), No clicks present (Cardio), No murmurs present (Cardio), No rub (Cardio) and Peripheral pulses 2+ throughout RATE: regular rate RHYTHM: regular rhythm HEART SOUNDS: S1 normal heart sound present and S2 normal heart sound present PERIPHERAL PULSES: Peripheral pulses 2+ throughout GI: COMMON NORMALS: Normal to inspection, nondistended, normoactive bowel sounds present, Soft to palpation and non-tender PALPATION: Yes Soft to palpation : COMMON NORMALS: Yes no CVA tenderness BLADDER/KIDNEY EXAM: Yes no CVA tenderness Back/Pelvis: COMMON NORMALS: no CVA tenderness, thoracic and lumbar spine normal to inspection, no thoracic nor lumbar tenderness and thoraco-lumbar ROM normal Extremity: RIGHT UPPER EXTREMITY: Yes upper arm (abrasion noted NVI distally) Neuro: COMMON NORMALS: patient oriented x3, CN's II-XII intact bilaterally, moves all extremities, no focal motor deficits, no sensory deficits noted, deep tendon reflexes 2+ bilaterally and gait normal SENSORIUM/ORIENTATION: Yes alert Psych: COMMON NORMALS: mental status grossly normal, Normal thought process present, cooperative, normal affect, speech normal, activity/motor behavior normal, denies hallucinations, denies homicidal ideation and denies suicidal ideation SPEECH: Yes normal speech THOUGHT PROCESS: Normal thought process present Skin: NARRATIVE SKIN EXAM: abrasion to right tempora area and right forearm Course Vital Signs: Vital signs: Vital Signs Temperature 98.2 F 08/09/21 13:45 Pulse Rate 117 H 08/09/21 13:45 Respiratory Rate 14 08/09/21 13:45 Pulse Oximetry 99 08/09/21 13:45 MDM - Head Injury Medcial Decision Making Patient is well appearing non toxic and in no acute distress. 15 yo male patient presents to ER with Hives per mom. Mom states he took some vitamins that had magnesium calcium and zinc and b vitamins for the first time and broke out. Pt denies any shortness of breath or any complaints. Mom states rash has resolved and wants to go home. Patient advised nurse she wants to refuse all test and go home. Nurse states then she wants UPT but wants to refuse all other tests. I went to speak to patient but patient was AMA at that time Lab Data Laboratory Results HCG, Qual Negative (Negative) 08/09/21 13:55 Urine Color Yellow (Yellow) 08/09/21 13:55 Urine Appearance Clear (CLEAR) 08/09/21 13:55 Urine pH 6.5 (5-7) 08/09/21 13:55 Ur Specific [place] 1.000 (1.005-1.030) L 08/09/21 13:55 Urine Protein Neg (Negative) 08/09/21 13:55 Urine Glucose (UA) Norm (Normal) 08/09/21 13:55 Urine Ketones Negative (Negative) 08/09/21 13:55 Urine Blood Neg (Negative) 08/09/21 13:55 Urine Nitrate Negative (Negative) 08/09/21 13:55 Urine Bilirubin Neg (Negative) 08/09/21 13:55 Urine Urobilinogen Norm mg/dL (Negative) 08/09/21 13:55 Ur Leukocyte Esterase Negative (Negative) 08/09/21 13:55 Urine Opiates Screen Negative ng/mL (Negative) 08/09/21 13:55 Ur Barbiturates Screen Negative ng/mL (Negative) 08/09/21 13:55 Ur Phencyclidine Scrn Negative ng/mL (Negative) 08/09/21 13:55 Ur Amphetamines Screen Negative ng/mL (Negative) 08/09/21 13:55 U Benzodiazepines Scrn Negative ng/mL (Negative) 08/09/21 13:55 Urine Cocaine Screen Negative ng/mL (Negative) 08/09/21 13:55 U Marijuana (THC) Screen Negative ng/mL (Negative) 08/09/21 13:55 Discharge Plan Discharge Patient Disposition: Left Against Medical Advice Prescriptions: No Action norgestimate-ethinyl estradiol [Ortho Tri-Cyclen (28)] 0.18/0.215/0.25 mg-35 mcg (28) Tablet 1 tab PO DAILY@1000 0RF Lexapro 20 mg tablet 20 mg PO DAILY@1000 0RF Referrals: Matt Ray MD [Primary Care Provider] - Coding Level of Care Code ED Amortization Clerk for Vonda Hall
== END 2021-08-09 15:51 | disposition left against medical advice (07) ==
PROVIDERS: Emergency Provider Registered Nurse; PCP Family Medicine
DX: S00.01XA Abrasion of scalp, initial encounter (principal); Z53.21 Procedure and treatment not carried out due to patient leaving prior to being seen by health care provider; W19.XXXA Unspecified fall, initial encounter
CPT/HCPCS: 80306; 81003; 81025; 99283

== ENCOUNTER 2021-10-14 14:45 | Emergency (ER) | payer BC, SELFPAY ==
--- NOTE | 2021-10-14 14:46 | XRR_ITS ---
PROCEDURE INFORMATION: Exam: XR Left Ankle Exam date and time: 10/14/2021 3:28 PM Age: 20 years old Clinical indication: Pain; Ankle; Left; Additional info: L ankle pain TECHNIQUE: Imaging protocol: Radiologic exam of the Left ankle. Views: 3 or more views. COMPARISON: No relevant prior studies available. FINDINGS: Bones/joints: Osseous structures are intact. Negative for fracture. Joint spaces are preserved. Soft tissues: Normal. XR/XR ankle LT min 3V* [id number] IMPRESSION: No acute findings.
[2021-10-14 15:22] VITALS: BP 129/84; PULSE 79; RESP 18; TEMP 36.8; O2SAT 99; BMI 222.7
--- NOTE | 2021-10-14 16:15 | ED_ITS ---
Documented by User: Cristin Mccall PA-C 10/14/21 16:26 HPI - Extremity Problem General: Chief complaint: Extremity Injury, Lower Stated complaint: left ankle injury Time Seen by Provider: 10/14/21 16:06 Source: patient Mode of arrival: wheelchair Limitations: no limitations History of Present Illness: 20-year-old female presents to the ER today for left ankle pain x24 hours. [place] uneven ground and fell, with her left ankle turning outward. Patient reports she had immediate pain and felt a pop. Patient reports she had immediate swelling and has had continued to have swelling and pain since. Patient reports pain with any weightbearing and being unable to bear weight due to the pain. Patient has been taking ibuprofen since the incident. She reports she has been doing ice and elevation also. Patient denies any prior injury to this ankle. Review of Systems General: Reports: 10 or more systems reviewed and unremarkable except in HPI and below PFSH ED PFSH: Medical History No significant past medical history Surgical History No significant past surgical history Social History Smoking and tobacco status: never smoked Alcohol intake: current Alcohol intake frequency: 0-2 Drinks per Day Additional social history: Patient uses vaping Female Reproductive History: Date of last menstrual period: 08/11/20 Physical Exam Const: COMMON NORMALS: average body habitus, patient oriented x3, no limitations, healthy appearing and alert Neck/C-Spine: COMMON NORMALS: full ROM Resp: COMMON NORMALS: normal respiratory effort EFFORT & INSPECTION: Yes able to speak in complete sentences Cardio: COMMON NORMALS: regular rate and regular rhythm RATE: regular rate RHYTHM: regular rhythm Extremity: NARRATIVE EXTREMITY EXAM: She has moderate to severe swelling of the left lateral malleolus and left medial malleolus. The swelling on the lateral side is more inferior to the malleolus over the lateral left fifth metatarsal. Patient has pain with any range of motion or weightbearing. Tenderness to palpation over both medial and lateral malleolus. Mild bruising noted. Neuro: COMMON NORMALS: patient oriented x3 SENSORIUM/ORIENTATION: Yes alert Psych: COMMON NORMALS: mental status grossly normal, Normal thought process present and cooperative THOUGHT PROCESS: Normal thought process present Skin: NARRATIVE SKIN EXAM: Mild bruising noted of the left lateral and medial malleolus. No open wounds noted or rashes noted. Course ED course: 20-year-old female presents to the ER today for left ankle pain and swelling x24 hours. [place] ground and felt her ankle roll and pop. Patient reports severe swelling since. Patient has been icing and elevating ankle and taking ibuprofen for the last 24 hours with minimal improvement. Patient reports she is unable to bear weight due to pain. We will get x-ray of the ER today. Vital Signs: Vital signs: Vital Signs Temperature 98.2 F 10/14/21 15:22 Pulse Rate 79 10/14/21 15:22 Respiratory Rate 18 10/14/21 15:22 Blood Pressure 129/84 10/14/21 15:22 Pulse Oximetry 99 10/14/21 15:22 MDM - Extremity (Nontraumatic) Medical Decision Making 20-year-old female presents to the ER today for left ankle pain and swelling x24 hours. [place] uneven ground and felt her ankle roll and pop. Patient reports severe swelling since. Patient has been icing and elevating ankle and taking ibuprofen for the last 24 hours with minimal improvement. Patient reports she is unable to bear weight due to pain. We will get x-ray of the ER today. X-ray in the ER is normal. There is significant soft tissue swelling on exam. Patient likely has a severe ankle sprain. We will place patient in a soft lower leg splint. Patient given crutches. Recommended patient stay off and be nonweightbearing x1 week then she may remove the splint and remain on crutches and be partial weightbearing times another week. Recommended rest, ice, elevation. Take Aleve or ibuprofen [id number] for the first 7 to 10 days. Follow-up with PCP in 1 week. Return to the ER with any new or worsening symptoms. Patient verbalized understanding and was in agreement with the treatment plan. Lab Data Radiology Impressions Ankle X-Ray 10/14/21 14:46 IMPRESSION: No acute findings. Critical Care Time Critical Care Time: Critical Care Time: No Discharge Plan Discharge Patient Disposition: Home Clinical Impression: Sprain of ankle, left Qualifiers: Encounter type: initial encounter Condition: Stable Prescriptions: No Action norgestimate-ethinyl estradiol [Ortho Tri-Cyclen (28)] 0.18/0.215/0.25 mg-35 mcg (28) Tablet 1 tab PO DAILY@1000 0RF Lexapro 20 mg tablet 20 mg PO DAILY@1000 0RF Discharge Orders: Discharge ED (Routine); Ordered 10/14/21 Ordered By: Cristin Mccall Referrals: Matt Ray MD [Primary Care Provider] - Discharge Diet: Usual diet Discharge Activity: Limit activity as instructed Patient Instructions: Opioid Safety Activity Restrictions/Additional Instructions: Wear splint and use crutches x1 week. I recommend no weightbearing x1 week. After 1 week, remove splint and get Velcro ankle brace. Use that and crutches for another week. After 2 weeks, try walking on ankle without crutches. For the next 7 to 10 days take ibuprofen or Aleve daily. Rest, ice, elevation recommended. Follow-up with PCP in 7 to 10 days. Return to the ER with new or worsening symptoms. Stand Alone Forms: Work/School Release Coding Level of Care Code ED Electrician Telephone for Chg Fwd Exam Detailed Documented by User: Enrique Gorman DO 10/15/21 06:35 HPI - Extremity Problem General: Chief complaint: Extremity Injury, Lower Stated complaint: left ankle injury Time Seen by Provider: 10/14/21 16:06 [facility] ED PFSH: Medical History No significant past medical history Surgical History No significant past surgical history Social History Smoking and tobacco status: never smoked Alcohol intake: current Alcohol intake frequency: 0-2 Drinks per Day Additional social history: Patient uses vaping Course Vital Signs: Vital signs: Vital Signs Temperature 98.2 F 10/14/21 15:22 Pulse Rate 79 10/14/21 15:22 Respiratory Rate 18 10/14/21 15:22 Blood Pressure 129/84 10/14/21 15:22 Pulse Oximetry 99 10/14/21 15:22 MDM - Extremity (Nontraumatic) Medical Decision Making 20-year-old female presents to the ER today for left ankle pain and swelling x24 hours. [place] uneven ground and felt her ankle roll and pop. Patient reports severe swelling since. Patient has been icing and elevating ankle and taking ibuprofen for the last 24 hours with minimal improvement. Patient reports she is unable to bear weight due to pain. We will get x-ray of the ER today. X-ray in the ER is normal. There is significant soft tissue swelling on exam. Patient likely has a severe ankle sprain. We will place patient in a soft lower leg splint. Patient given crutches. Recommended patient stay off and be nonweightbearing x1 week then she may remove the splint and remain on crutches and be partial weightbearing times another week. Recommended rest, ice, elevation. Take Aleve or ibuprofen [id number] for the first 7 to 10 days. Follow-up with PCP in 1 week. Return to the ER with any new or worsening symptoms. Patient verbalized unde rstanding and was in agreement with the treatment plan. Chart reviewed and patient discussed with midlevel. Agree with assessment and plan. Lab Data Radiology Impressions Ankle X-Ray 10/14/21 14:46 IMPRESSION: No acute findings. Discharge Plan Discharge Patient Disposition: Home Clinical Impression: Sprain of ankle, left Qualifiers: Encounter type: initial encounter Condition: Stable Prescriptions: No Action norgestimate-ethinyl estradiol [Ortho Tri-Cyclen (28)] 0.18/0.215/0.25 mg-35 mcg (28) Tablet 1 tab PO DAILY@1000 0RF Lexapro 20 mg tablet 20 mg PO DAILY@1000 0RF Discharge Orders: Discharge ED (Routine); Ordered 10/14/21 Ordered By: Cristin Mccall Referrals: Matt Ray MD [Primary Care Provider] - Discharge Diet: Usual diet Discharge Activity: Limit activity as instructed Patient Instructions: Opioid Safety Activity Restrictions/Additional Instructions: Wear splint and use crutches x1 week. I recommend no weightbearing x1 week. After 1 week, remove splint and get Velcro ankle brace. Use that and crutches for another week. After 2 weeks, try walking on ankle without crutches. For the next 7 to 10 days take ibuprofen or Aleve daily. Rest, ice, elevation recommended. Follow-up with PCP in 7 to 10 days. Return to the ER with new or worsening symptoms. Stand Alone Forms: Work/School Release Coding Level of Care Code ED Electrician Telephone for Vonda Fwd Exam Detailed
== END 2021-10-14 16:43 | disposition home or self-care (01) ==
PROVIDERS: Emergency Provider Physician Assistant; PCP Family Medicine
DX: S93.402A Sprain of unspecified ligament of left ankle, initial encounter (principal); W19.XXXA Unspecified fall, initial encounter
CPT/HCPCS: 29515; 73610; 99283; E0114

== ENCOUNTER → 2022-05-08 09:24 | Outpatient (BNVA) | payer OTHER, SELFPAY | PROVIDERS: PCP Family Medicine; Visit Provider Podiatrist Foot & Ankle Surgery | DX: M67.471 Ganglion, right ankle and foot (principal); M72.2 Plantar fascial fibromatosis; M21.6X9 Other acquired deformities of unspecified foot | CPT/HCPCS: 73630 ==

== ENCOUNTER 2022-12-17 08:42 | Outpatient (CLI) | payer MEDICAID, SELFPAY ==
[2022-12-17] VITALS (9 sets, daily range): BP systolic 102–129; BP diastolic 53–74; PULSE 64–91; TEMP 35.9; BMI 27.2
[2022-12-17 09:24] LABS: Nitrazine Paper, PH Negative
== END 2022-12-17 13:13 | disposition home or self-care (01) ==
LOC: OPOB 08:45 → OBGYN 08:47
PROVIDERS: PCP Family Medicine; Visit Provider Family Medicine
DX: O26.899 Other specified pregnancy related conditions, unspecified trimester (principal); Z3A.00 Weeks of gestation of pregnancy not specified; R10.9 Unspecified abdominal pain; N89.8 Other specified noninflammatory disorders of vagina
CPT/HCPCS: 59025; 83986; 99211

== ENCOUNTER 2022-12-18 08:30 | Inpatient (IN) | payer BC, MEDICAID, SELFPAY ==
[2022-12-18] VITALS (60 sets, daily range): BP systolic 93–172; BP diastolic 50–93; PULSE 57–139; RESP 15–20; TEMP 35.8–37; O2SAT 98–100; BMI 26.9
[2022-12-18] MEDS: lactated ringers 1,000 ML 999 ML IV (08:40)
[2022-12-18] MEDS: fentaNYL 50 mcg/mL INJ 2mL IVP (08:43)
[2022-12-18 08:49] LABS: Basophils % 0.2 %; Eosinophils % 0.1 %; Hematocrit 37.2 % (36-47); Lymphocytes # 2.6 10^3/uL (0.8-4.8); Lymphocytes % 15.7 %; Mean Corpuscular HGB Conc 34.4 g/dL (30-55); Mean Corpuscular Hemoglobin 31.1 pg (27-33); Mean Corpuscular Volume 90.3 fl (85-98); Mean Platelet Volume 10.2 fL (7.4-10.4); Monocytes # 0.6 10^3/uL (0.2-0.9); Monocytes % 3.8 %; Neutrophils # 13.19 10^3/uL (1.8-7.7); Neutrophils % 79.5 %; Nucleated Red Blood Cells % 0 %; Platelet Count 289 10^3/cmm (157-399); Red Blood Count 4.12 10^6/uL (3.85-5.65); Red Cell Distribution Width 13.9 % (12.1-15.1)
[2022-12-18] MEDS: ondansetron 2 mg/ML SDV 2 mL 4 MG IVP (08:56)
[2022-12-18] MEDS: lactated ringers 1,000 ML 125 ML IV (09:45)
[2022-12-18] MEDS: ROPivacaine syringe 100 MG/50 ML SYRINGE 10 MG EPIDURAL (09:50)
--- NOTE | 2022-12-18 11:15 | ANES.PREANE2 ---
Pre-Anesthetic Assessment Height/Weight: Height 1.68 m Temp Pulse Resp BP Pulse Ox 96.4 F L 99 20 H 100/57 100 12/18/22 10:00 12/18/22 10:57 12/18/22 08:43 12/18/22 10:57 12/18/22 09:55 Familial anesthetic complications: none Was Beta Dick taken within 24 hours: N/A Was Clonidine taken within 24 hours: N/A Social No alcohol and No tobacco Exam alert, oriented x 3, clear to auscultation bilaterally and regular rate & rhythm Airway Submandibular: within normal limits Cervical ROM: within normal limits Mallampati: Class II Dentition: full Neuropsych Anxiety and Depression Anesthetic Plan ASA status: 2 Anesthesia: Regional (specify below) (Labor epidural) Medications/Allergies Allergies Allergy/AdvReac Type Severity Reaction Status Date / Time amoxicillin Allergy Severe severe Verified 05/08/22 09:32 reaction. Penicillins Allergy ALGY-Hives Verified 05/08/22 09:32 Current Medications Generic Name Dose Route Start Last Admin Trade Name Freq PRN Reason Stop Dose Admin Fentanyl 25 - 100 mcg 12/18/22 07:59 12/18/22 08:43 Fentanyl 50 Mcg/Ml Inj 2ml IVP 25 mcg Q1H PRN Administration SEVERE PAIN Lactated Ringer's 1,000 mls @ 999 mls/hr 12/18/22 07:59 12/18/22 09:45 Lactated Ringers IV 125 mls/hr .Q1H1M PRN Administration Per L&D Rescitation Protocol Lactated Ringer's 1,000 mls @ 999 mls/hr 12/18/22 08:41 12/18/22 09:45 Lactated Ringers IV Infused .Q1H1M PRN Infusion See label comments Ropivacaine 100 mg in 50 mls @ 10 mls/hr 12/18/22 08:45 12/18/22 09:50 Naropin Syringe EPIDURAL 10 mls/hr .Q5H CHONG Administration Ondansetron HCl 4 mg 12/18/22 07:59 12/18/22 08:56 Ondansetron 2 Mg/Ml Sdv 2 Ml IVP 4 mg Q4H PRN Administration NAUSEA AND VOMITING PFSH Anesthesia Medical History No significant past medical history Surgical History No significant past surgical history Social History Smoking and tobacco status: never smoked Alcohol intake: current Alcohol intake frequency: 0-2 Drinks per Day Additional social history: Patient uses vaping Data Anesthesia 12/18/22 08:39 Short CBC 12/18/22 Range/Units 08:39 WBC 16.60 H (3.29-11.43) 10^3/uL Hgb 12.80 (11.27-16.99) g/dL Hct 37.2 (36-47) % MCV 90.3 (85-98) fl Plt Count 289 (157-399) 10^3/cmm Neut % (Auto) 79.5 % Neut # (Auto) 13.19 H (1.8-7.7) 10^3/uL Blood Bank 12/18/22 08:39 Blood Type A Positive Rho(D) Type Positive Antibody Screen Negative Cardiac Studies: No Data to Display Anesthesia Procedures Epidural Time Out Performed: Yes Consents Signed: Procedure Consent Consent: requested by attending/covering physician, from patient, risks and benefits reviewed and patient agrees to proceed Lumbar Level: L3-L4 Epidural position: sitting Epidural procedure: sterile prep of area, 1% lidocaine to numb the area, 18 g needle, neg for paresthesia, test dose given, 1.5% xylocaine 1:200k epi, placed PCEA, no systemic response, sterile dressing applied, L.U.D. no apparent complications and 0.2% Ropiavacaine @ mls/hr (10) Additional Comments: NASIR at 5cm, cath at 10cm, bolused 5mls of 2% lido
--- NOTE | 2022-12-18 11:59 | PM.OPHPUD ---
Labor & Delivery H&P Update Date of Procedure: December 18, 2022 Date H&P Performed: 12/16/22 Admission Diagnosis: 22-year-old 1 at 40-weeks estimated gestational age presenting in active labor. Planned procedure: Vaginal delivery Other information: The patient is an otherwise healthy 1 female who presents to the hospital at 4 cm dilated. She came to the hospital yesterday with contractions and had minimal change in her cervix and was sent home with the understanding that she was in early labor. She contracted intermittently since that time and showed up in the hospital this morning having consistent contractions and demonstrating definite change since yesterday. She also has probable rupture membranes upon arrival to hospital well. Her has been unremarkable in general. Her blood type is a positive for antibody screen was negative she is GBS negative. She is rubella immune. She passed her glucose screen. The remainder of her infectious disease profile is within normal limits. Related Problem List Diagnoses (1) 40 weeks gestation of : A&P Assessment and plan (1) 40 weeks gestation of : I anticipate routine labor. Status: Acute
--- NOTE | 2022-12-18 12:00 | ANE.PACU2 ---
Inpatient post-anesthesia follow up: Airway intact: Yes Vital signs: Temperature 98.0 F Pulse Rate 79 Respiratory Rate 18 Blood Pressure 122/86 Pulse Oximetry 97 Oxygen Delivery Me thod Room Air Oxygen Flow Rate Fraction of Inspir ed Oxygen Hydration adequate: Yes Nausea and vomiting: No Pain level: 2 Mental status: Baseline
--- NOTE | 2022-12-18 12:07 | PM.DELIVERY ---
Delivery Note: Date of delivery: December 18, 2022 Pre-delivery diagnoses: 22-year-old 1 at 40 weeks estimated gestational age in active labor Post-delivery diagnoses: Status post spontaneous vaginal delivery Procedure: Spontaneous vaginal delivery Delivering Physician: Rich Riggs Estimated blood loss (mL): 50 Pre-Delivery Course: The patient presented to the hospital in active labor this morning around 8:00. She had questionable ruptured membranes. She received an epidural. She then progressed to complete without difficulty. Delivery: DELIVERY: The patient progressed to complete without difficulty. She delivered a female with a weight of 6 pounds 14 ounces with Apgars of 8, 9. The baby was delivered from the BRITTANEY position and placed on the mother's abdomen. The cord was then clamped and cut. There was a nuchal cord x1 which the baby was delivered through. There was no meconium. The placenta and 3 vessel cord were delivered intact shortly thereafter. The perineum and vaginal vault were carefully examined. Several minor vaginal wall lacerations were noted. Both the mother and the baby were in stable condition. Post-Delivery Status: Good A&P Assessment and plan (1) 40 weeks gestation of : I anticipate routine care (2) Spontaneous vaginal delivery: Coding Level of Care Code Acute Code for Chg Fwd Diagnoses 40 weeks gestation of Z3A.40 Spontaneous vaginal delivery O80
[2022-12-18] MEDS: oxytocin 30 UNIT/500 ML BAG 600 UNIT IV (12:27)
[2022-12-18] MEDS: acetaminophen 325 mg Tablet 650 MG PO (13:10)
[2022-12-18] MEDS: lanolin oint 7 gm 1 APPLIC TOPICAL (16:21)
[2022-12-18] MEDS: benzocaine-menthol 78 gm Canister 1 SPRAY TOPICAL (16:21)
[2022-12-18] MEDS: docusate sodium 100 mg Capsule PO (17:47)
[2022-12-19 00:48] LABS: Hematocrit 33.8 % (36-47); Mean Corpuscular HGB Conc 33.4 g/dL (30-55); Mean Corpuscular Hemoglobin 31.1 pg (27-33); Mean Corpuscular Volume 93.1 fl (85-98); Mean Platelet Volume 10.1 fL (7.4-10.4); Platelet Count 204 10^3/cmm (157-399); Red Blood Count 3.63 10^6/uL (3.85-5.65); Red Cell Distribution Width 13.8 % (12.1-15.1); White Blood Count 13.61 10^3/uL (3.29-11.43)
[2022-12-19 05:00] VITALS: BP 116/76; PULSE 63; RESP 15; TEMP 36.8; O2SAT 97
--- NOTE | 2022-12-19 06:49 | PM.OBGYDC ---
Discharge Providers NATURAL RESOURCES INSTRUCTOR Date of Admission: 12/18/22 08:30 Date of Discharge: 12/19/22 Attending Provider at Admission: Rich Riggs MD Attending Provider at Discharge: Rich Riggs MD Primary Care Provider: Rich Riggs MD Diagnoses at Discharge Discharge Diagnosis (1) 40 weeks gestation of : Status: Acute (2) Spontaneous vaginal delivery: Status: Acute Reason for Visit Reason for Visit: poss SROM and CTX Hospital Course Hospital Course The patient presented to the hospital in active labor. An epidural was placed. She progressed to complete without difficulty. She pushed for less than half an hour. She had an unremarkable spontaneous vaginal delivery. Her course has also been unremarkable. She has breast-fed well. Her bleeding has been limited. Her pain has been well controlled. Information Peripartum Data: Infant Delivery Method: Vaginal Physical Exam Narrative: The patient is alert. She appears comfortable. Her heart has a regular rate and rhythm with no murmurs appreciated. Lungs are clear to auscultation bilaterally. Her fundus is firm and below the umbilicus. Urinary Catheter Management: Amos: Cath Placed During This Visit: yes, but has since been removed by the nurse Reason for Continuing Indwelling Catheter: Decision to DC Catheter Urinary Catheter Date of Insertion: 12/18/22 Urinary Catheter Time of Insertion: 10:20 Date Urinary Catheter Removed: 12/18/22 Time Urinary Catheter Discontinued: 11:27 Discharge Data Studies Completed and Pending Laboratory Results WBC 13.61 10^3/uL (3.29-11.43) H 12/19/22 00:39 RBC 3.63 10^6/uL (3.85-5.65) L 12/19/22 00:39 Hgb 11.30 g/dL (11.27-16.99) 12/19/22 00:39 Hct 33.8 % (36-47) L 12/19/22 00:39 MCV 93.1 fl (85-98) 12/19/22 00:39 MCH 31.1 pg (27-33) 12/19/22 00:39 MCHC 33.4 g/dL (30-55) 12/19/22 00:39 RDW 13.8 % (12.1-15.1) 12/19/22 00:39 Plt Count 204 10^3/cmm (157-399) 12/19/22 00:39 MPV 10.1 fL (7.4-10.4) 12/19/22 00:39 Neut % (Auto) 79.5 % 12/18/22 08:39 Lymph % (Auto) 15.7 % 12/18/22 08:39 [place] % (Auto) 3.8 % 12/18/22 08:39 Eos % (Auto) 0.1 % 12/18/22 08:39 Baso % (Auto) 0.2 % 12/18/22 08:39 Neut # (Auto) 13.19 10^3/uL (1.8-7.7) H 12/18/22 08:39 Lymph # (Auto) 2.6 10^3/uL (0.8-4.8) 12/18/22 08:39 [place] # (Auto) 0.6 10^3/uL (0.2-0.9) 12/18/22 08:39 Eos # (Auto) 0.0 10^3/uL (0.0-0.8) 12/18/22 08:39 Baso # (Auto) 0.0 10^3/uL (0.0-0.1) 12/18/22 08:39 Nucleated RBC % (auto) 0 % 12/18/22 08:39 Nucleated RBCs # 0.0 /100WBC 12/18/22 08:39 Blood Type A Positive 12/18/22 08:39 Rho(D) Type Positive 12/18/22 08:39 Antibody Screen Negative 12/18/22 08:39 Vitals Last Vital Signs Temp 98.2 F 12/19/22 05:00 Pulse 63 12/19/22 05:00 Resp 15 12/19/22 05:00 BP 116/76 12/19/22 05:00 Pulse Ox 97 12/19/22 05:00 O2 Del Method Room Air 12/19/22 05:00 Discharge Plan Discharge Patient Disposition: Home Prescriptions: New ibuprofen 800 mg Tablet 800 mg PO TID Qty: 45 0RF -U 106.5-1 mg Capsule 1 cap PO DAILY Qty: 90 2RF Discharge Orders: Discharge Order (Routine); Ordered 12/19/22 Ordered By: Rich Riggs Referrals: Rich Riggs MD [Primary Care Provider] - 6 Weeks Discharge Diet: Usual diet Discharge Activity: Limit activity as instructed Patient Instructions: Opioid Safety Discharge Attestations NATURAL RESOURCES INSTRUCTOR Time Spent in Discharge Care*: less than 30 min Coding Level of Care Code Acute Code for Chg Fwd Diagnoses 40 weeks gestation of Z3A.40 Spontaneous vaginal delivery O80
[2022-12-19] MEDS: docusate sodium 100 mg Capsule PO (09:51)
[2022-12-19] MEDS: prenatal vitamin Capsule 1 CAP PO (09:52)
[2022-12-19] MEDS: ibuprofen 800 mg tablet PO (09:52)
[2022-12-19 10:15] VITALS: BP 115/79; PULSE 65; RESP 16; TEMP 36.6
[2022-12-19 15:00] VITALS: BP 122/86; PULSE 79; RESP 18; TEMP 36.7
== END 2022-12-19 15:00 | disposition home or self-care (01) | DRG 807 ==
LOC: OPOB 11:04 → OBGYN 11:04
PROVIDERS: Admitting Provider Family Medicine; PCP Family Medicine; Visit Provider Family Medicine
DX: O69.81X0 Labor and delivery complicated by cord around neck, without compression, not applicable or unspecified (principal); Z37.0 Single live birth; Z3A.40 40 weeks gestation of pregnancy
CPT/HCPCS: 36415; 51702; 59025; 59409; 83986; 85025; 85027; 86850; 86900; 96374; 98960; 99211; J2405; J2590; J2795; J3010; J7120

== ENCOUNTER 2024-07-30 09:52 | Emergency (ER) | payer BC, SELFPAY ==
[2024-07-30 10:00] VITALS: BP 88/48; PULSE 60; RESP 21; TEMP 37.2; O2SAT 100; BMI 22.8
--- NOTE | 2024-07-30 10:21 | ED_ITS ---
HPI - Syncope 2 General: Chief Complaint: Syncope Stated Complaint: poss seizure, started to black out Time Seen by Provider: 07/30/24 10:16 History of Present Illness: 23-year-old female who presents to the e mergency room with a possible syncopal episode. She says she felt lightheaded and blacked out. She says she thinks she might of had a seizure. She tells me in confidence that she is afraid she may be having alcohol withdrawal. She says that she has had a seizure secondary to this before. I discussed with her that her blood pressure is low which should point more towards syncope from low blood pressure than alcohol withdrawal. No other symptoms. No abdominal pain. No dysuria. No fevers. No chest pain. Currently no altered mental status. No focal motor deficits Related Data Home Medications ?Medication ?Instructions ?Recorded ?Confirmed hydroxyzine pamoate 25 mg capsule 25 mg PO BID PRN Anx iety 07/30/24 07/30/24 ibuprofen 200 mg tablet (Advil) 600 mg PO Q6H PRN Feve r Or Pain 07/30/24 07/30/24 norgestimate-ethinyl estradiol 1 tab PO DAILY 07/30/24 07/30/24 0.18 mg/0.215mg/0.25mg-35 mcg(28)tablet (Tri-Sprintec (28)) Allergies Allergy/AdvReac Type Severity Reaction Status Date / Time amoxicillin Allergy Severe severe Verified 07/30/24 10:14 reaction. Penicillins Allergy ALGY-Hives Verified 07/30/24 10:14 Review of Systems 2 Narrative: Constitutional symptoms: Negative except as documented in HPI. Skin symptoms: Negative except as documented in HPI. Eye symptoms: Negative except as documented in HPI. ENMT symptoms: Negative except as documented in HPI. Respiratory symptoms: Negative except as documented in HPI. Cardiovascular symptoms: Negative except as documented in HPI. Gastrointestinal symptoms: Negative except as documented in HPI. Genitourinary symptoms: Negative except as documented in HPI. Musculoskeletal symptoms: Negative except as documented in HPI. Neurologic symptoms: Negative except as documented in HPI. Psychiatric symptoms: Negative except as documented in HPI. Endocrine symptoms: Negative except as documented in HPI. PFSH ED 2 PFSH: Medical History (Updated 07/30/24 @ 13:08 by Yamileth Blanco MD) No significant past medical history Surgical History No significant past surgical history Social History Smoking and tobacco/nicotine status: never used tobacco/nicotine Alcohol intake: current Alcohol intake frequency: 0-2 Drinks per Day Additional social history: Patient uses vaping Physical Exam 2 Narrative: EXAM NARRATIVE: General: Alert, no acute distress. Skin: Warm, dry. Head: Normocephalic, atraumatic. Neck: Supple, trachea midline. Eye: Extraocular movements are intact. Ears, nose, mouth and throat: mucosa moist. Cardiovascular: Regular, Normal peripheral perfusion. Respiratory: Lungs are clear to auscultation, respirations are non-labored, breath sounds are equal, Symmetrical chest wall expansion. Gastrointestinal: Soft, Nontender, Non distended Musculoskeletal: Normal ROM, no deformity. Neurological: Alert and oriented, No focal neurological deficit observed. Psychiatric: Cooperative, patient is a bit tearful when she tells me about her concerns for alcohol withdrawal Course 2 Vital Signs: Vital signs: Vital Signs Temperature 99.0 F 07/30/24 10:00 Pulse Rate 70 07/30/24 12:12 Respiratory Rate 18 07/30/24 12:12 Blood Pressure 101/65 07/30/24 12:12 Pulse Oximetry 97 07/30/24 12:12 Oxygen Delivery Me thod Room Air 07/30/24 12:12 MDM - Syncope Medical Decision Making Medical decision making: Differential diagnosis including but not limited to and based on the above HPI, review of systems and physical exam in this patient with syncope: Vasovagal, orthostatics hypotension, cardiac dysrhythmia, myocardial infarction, infection and hypotension, Orders placed to evaluate differential diagnosis based on the above differential, HPI and physical exam Lab Review: Laboratory results were reviewed and interpreted by myself the emergency room physician. No leukocytosis. No anemia. No renal failure. Urinalysis is negative for infection. I reviewed the patient's medical record. Reexamination: Patient remained stable. No increased work of breathing. No altered mental status. No focal motor deficits. I discussed again with the patient that at think she is having DTs as her blood pressure is low. I think she had a syncopal episode secondary to low blood pressure and possible dehydration from said alcohol use. Blood pressure has improved with fluids. Assessment and plan: Syncope Dehydration - Discharged home - Discussed findings and plan with patient. Answered any questions. - All laboratory values were reviewed and interpreted personally by myself, the ER physician - Evaluation and treatment of this problem were appropriate in the emergency setting Lab Data 07/30/24 10:30 07/30/24 10:30 Laboratory Results WBC 9.24 10^3/uL (3.29-11.43) 07/30/24 10:30 RBC 4.19 10^6/uL (3.85-5.65) 07/30/24 10:30 Hgb 12.60 g/dL (11.27-16.99) 07/30/24 10:30 Hct 38.4 % (36-47) 07/30/24 10:30 MCV 91.6 fl (85-98) 07/30/24 10:30 MCH 30.1 pg (27-33) 07/30/24 10:30 MCHC 32.8 g/dL (30-55) 07/30/24 10:30 RDW 13.2 % (12.1-15.1) 07/30/24 10:30 Plt Count 298 10^3/cmm (157-399) 07/30/24 10:30 MPV 8.2 fL (7.4-10.4) 07/30/24 10:30 Neut % (Auto) 73.9 % 07/30/24 10:30 Lymph % (Auto) 20.6 % 07/30/24 10:30 Knott % (Auto) 3.9 % 07/30/24 10:30 Eos % (Auto) 0.4 % 07/30/24 10:30 Baso % (Auto) 0.8 % 07/30/24 10:30 Neut # (Auto) 6.83 10^3/uL (1.8-7.7) 07/30/24 10:30 Lymph # (Auto) 1.9 10^3/uL (0.8-4.8) 07/30/24 10:30 Knott # (Auto) 0.4 10^3/uL (0.2-0.9) 07/30/24 10:30 Eos # (Auto) 0.0 10^3/uL (0.0-0.8) 07/30/24 10:30 Baso # (Auto) 0.1 10^3/uL (0.0-0.1) 07/30/24 10:30 Nucleated RBC % (auto) 0 % 07/30/24 10:30 Nucleated RBCs # 0.0 /100WBC 07/30/24 10:30 Sodium 134 mmol/L (136-145) L 07/30/24 10:30 Potassium 4.1 mmol/L (3.5-5.1) 07/30/24 10:30 Chloride 99 mmol/L (98-107) 07/30/24 10:30 Carbon Dioxide 22 mmol/L (22-29) 07/30/24 10:30 Anion Gap 17.1 (5-19) 07/30/24 10:30 BUN 9 mg/dL (6-20) 07/30/24 10:30 Creatinine 0.7 mg/dL (0.5-0.9) 07/30/24 10:30 GFR Calculation 102.0 mL/min (90-130) 07/30/24 10:30 Glucose 101 mg/dL (65-115) 07/30/24 10:30 Calculated Osmolality 277 mOsm/kg (285-295) L 07/30/24 10:30 Lactic Acid 1.0 mmol/L (0.5-2.2) 07/30/24 10:30 Calcium 8.9 mg/dL (8.5-10.5) 07/30/24 10:30 Total Bilirubin 0.8 mg/dL (0.15-1.2) 07/30/24 10:30 AST 18 U/L (0-32) 07/30/24 10:30 ALT 15 U/L (0-33) 07/30/24 10:30 Alkaline Phosphatase 65 U/L (35-105) 07/30/24 10:30 Total Protein 7.3 g/dL (6.6-8.7) 07/30/24 10:30 Albumin 4.2 g/dL (3.5-5.2) 07/30/24 10:30 Globulin 3.1 g/dL (1.3-4.6) 07/30/24 10:30 HCG, Qual Negative (Negative) 07/30/24 12:40 Urine Color Yellow (Yellow) 07/30/24 12:40 Urine Appearance Clear (CLEAR) 07/30/24 12:40 Urine pH 6.0 (5-7) 07/30/24 12:40 Ur Specific Merrick 1.011 (1.005-1.030) 07/30/24 12:40 Urine Protein Negative (Negative) 07/30/24 12:40 Urine Glucose (UA) Negative (Normal) 07/30/24 12:40 Urine Ketones 1+ (Negative) H 07/30/24 12:40 Urine Blood Negative (Negative) 07/30/24 12:40 Urine Nitrate Negative (Negative) 07/30/24 12:40 Urine Bilirubin Negative (Negative) 07/30/24 12:40 Urine Urobilinogen 0.2 mg/dL (Negative) 07/30/24 12:40 Ur Leukocyte Esterase Negative (Negative) 07/30/24 12:40 Urine RBC 0-2 /hpf (0-2) 07/30/24 12:40 Urine WBC 0-5 /hpf (0-5) 07/30/24 12:40 Ur Squamous Epith Cells 0-5 /hpf (0-5) 07/30/24 12:40 Amorphous Sediment Not Reportable 07/30/24 12:40 Urine Bacteria None seen /hpf (NONE) 07/30/24 12:40 Hyaline Casts 0-4 /lpf H 07/30/24 12:40 Ethyl Alcohol < 10 mg/dL (0-10) 07/30/24 10:30 No radiology studies performed this visit Discharge Plan Discharge Patient Disposition: Home Clinical Impression: Syncope, Dehydration, Alcohol abuse Condition: Stable Prescriptions: No Action ibuprofen [Advil] 200 mg Tablet 600 mg PO Q6H PRN (Reason: Fever Or Pain) norgestimate-ethinyl estradiol [Tri-Sprintec (28)] 0.18/0.215/0.25 mg-35 mcg (28) tablet 1 tab PO DAILY hydroxyzine pamoate 25 mg Capsule 25 mg PO BID PRN (Reason: Anxiety) Discharge Orders: Discharge ED (Routine); Ordered 07/30/24 Ordered By: Yamileth Blanco Referrals: Rich Riggs MD [Primary Care Provider, Family Practice] Discharge Diet: Usual diet Discharge Activity: Increase activity as tolerated Patient Instructions: Syncope (ED), Opioid Safety, Pain Management Activity Restrictions/Additional Instructions: Thank you for choosing [facility] for your healthcare needs today. You have been screened and evaluated and felt safe for discharge. Health conditions do change or evolve sometimes and as such it is important that you follow up with your Primary Doctor to be re checked, 3-5 days is a general good time frame for follow up. 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
[2024-07-30 10:36] LABS: Basophils # 0.1 10^3/uL (0.0-0.1); Basophils % 0.8 %; Eosinophils % 0.4 %; Hematocrit 38.4 % (36-47); Lymphocytes # 1.9 10^3/uL (0.8-4.8); Lymphocytes % 20.6 %; Mean Corpuscular HGB Conc 32.8 g/dL (30-55); Mean Corpuscular Hemoglobin 30.1 pg (27-33); Mean Corpuscular Volume 91.6 fl (85-98); Mean Platelet Volume 8.2 fL (7.4-10.4); Monocytes # 0.4 10^3/uL (0.2-0.9); Monocytes % 3.9 %; Neutrophils # 6.83 10^3/uL (1.8-7.7); Neutrophils % 73.9 %; Nucleated Red Blood Cells % 0 %; Platelet Count 298 10^3/cmm (157-399); Red Blood Count 4.19 10^6/uL (3.85-5.65); Red Cell Distribution Width 13.2 % (12.1-15.1); White Blood Count 9.24 10^3/uL (3.29-11.43)
[2024-07-30] MEDS: sodium chloride 0.9% 1,000 ML 999 ML IV (10:39)
--- NOTE | 2024-07-30 10:41 | ECG_ITS ---
[employer] Careerist Test Date: 2024-07-30 Pat Name: Ashlee Osborne Department: Room: Gender: Female Policy Manager: : 2000 Requested By: Yamileth Miranda Order Number: [id number] Velazquez MD: Ezra Proctor M.D. Measurements Intervals Aurora Rate: 73 P: 51 VT: 129 QRS: 59 QRSD: 88 T: 66 QT: 399 QTc: 443 Interpretive Statements SINUS RHYTHM WITH SINUS ARRHYTHMIA POSSIBLE RIGHT VENTRICULAR CONDUCTION DELAY [RSR (QR) IN V1/V2] Compared to ECG 07/12/2018 15:48:52 Short VT interval no longer present Electronically Signed On 07-30-2024 13:32:46 CDT by Ezra Proctor M.D. [email or web address]
[2024-07-30 10:55] LABS: Alanine Aminotransferase 15 U/L (0-33); Albumin Level 4.2 g/dL (3.5-5.2); Alkaline Phosphatase 65 U/L (35-105); Anion Gap 17.1 (5-19); Aspartate Amino Transferase 18 U/L (0-32); Blood Urea Nitrogen 9 mg/dL (6-20); Calcium 8.9 mg/dL (8.5-10.5); Carbon Dioxide 22 mmol/L (22-29); Chloride 99 mmol/L (98-107); Creatinine Clr Calc Pharmacy 123.0595; Globulin 3.1 g/dL (1.3-4.6); Glucose 101 mg/dL (65-115); Osmolality Calculated 277 mOsm/kg (285-295); Potassium 4.1 mmol/L (3.5-5.1); Sodium 134 mmol/L (136-145); Total Bilirubin 0.8 mg/dL (0.15-1.2); Total Protein 7.3 g/dL (6.6-8.7)
[2024-07-30 10:56] LABS: Alcohol Level < 10 mg/dL (0-10)
[2024-07-30 11:40] VITALS: BP 112/75; PULSE 66; RESP 16; O2SAT 97
[2024-07-30 12:12] VITALS: BP 101/65; PULSE 70; RESP 18; O2SAT 97
[2024-07-30 13:05] LABS: Bilirubin Urine Negative (Negative); Blood Urine Negative (Negative); Glucose Urine UA Negative (Normal); HCG Qualitative Urine. Negative (Negative); Ketones Urine 1+ (Negative); Leukocyte Esterase Urine Negative (Negative); Nitrate Urine Negative (Negative); Protein Urine Negative (Negative); Specific Gravity, Urine 1.011 (1.005-1.030); Urine Appearance Clear (CLEAR); Urine Color Yellow (Yellow); Urobilinogen Urine 0.2 mg/dL (Negative)
[2024-07-30 13:10] LABS: Bacteria Urine None Seen /hpf; Hyaline Casts Urine 0-4 /lpf; RBC Urine 0-2 /hpf (0-2); Squamous Epithelial Cell Urine 0-5 /hpf (0-5); WBC Urine 0-5 /hpf (0-5)
[2024-07-30 14:08] VITALS: BP 92/51; PULSE 75; O2SAT 100
== END 2024-07-30 14:09 | disposition home or self-care (01) ==
PROVIDERS: Emergency Provider Emergency Medicine; PCP Family Medicine
DX: R55 Syncope and collapse (principal); E86.0 Dehydration; F10.10 Alcohol abuse, uncomplicated
CPT/HCPCS: 80053; 80307; 81001; 81025; 83605; 85025; 93005; 96360; 96361; 99284; J7030

== ENCOUNTER 2024-09-24 05:51 | Emergency (ER) | payer BC, SELFPAY ==
[2024-09-24 05:58] VITALS: BP 112/62; PULSE 82; RESP 16; TEMP 36.4; O2SAT 100; BMI 22.4
--- OUTSIDE RECORDS SUMMARY | 2024-09-24 05:58 | XMS_ITS | Continuity of Care Document ---
Author Organization [facility], [facility] ([facility]) Address [address] [place] [address] Care Team Providers Care Planning And Analysis Manager Name Role Phone WILLIAM RAY Primary Care Provider Unavailabl e Assessment No assessment recorded. Plan of Treatment Reminders Order Date Submit Date Provider Last Modified By Organization Details Last Modified Time Details Appointments OFFICE VISIT 15 2024 10:45A Natan Ray MD Not available Not available Not available ASSESSMEN T 2024 03:00P Natan ONEAL LCSW Not available Not available Not available Lab None recorded. Referral None recorded. Procedures None recorded. Surgeries None recorded. Imaging None recorded. Medication Orders prednison e 10 mg tablet 2024 025 [facility], [address], [place], [address], 09/19/2024 14:56:29 Patient TargetsNo targets recorded. Patient Instructions Encounter Date Encounter Id Patient Instructions Last Modified By Organization Details Last Modified Time 09/19/2024 [id number] Increase fluids and may take Dayquil OTC. Follow up for changes. [email or web address] Not available 09/19/2024 14:57:08 Reason for Referral None Reported. Problems Name Problem SNOMED Code Status Onset Date Resolution Date Notes Provider Name and Address Organization Details Recorded Time Normal 51569112 Completed 2022 Rich Riggs MD [address] [place] [address], [phone] , [facility] 3 12:11:19 Binge drinker 913471036 Active 2024 MACKENZIE ANTHONY [facility] 5 12:38:13 Mixed anxiety and depressiv e disorder 160151747 Active 2024 MACKENZIE ANTHONY [facility] 5 12:38:13 Normal in primigrav teresa 628698440507 103 Completed 2022 Rich Riggs MD [address] [place] [address], [phone], [facility] 3 12:11:19 Problem Notes None recorded. Procedures Surgical History Date Name Laterality Status Provider Name and Address Organization Details Recorded Time 3 Date of Last Pap Smear [facility] 11[facility]53:02 Imaging Results None recorded. Procedure Notes None recorded. Medical Equipment None Reported. Allergies Allergen ID Allergen Name Allergen Category Reaction Reaction Severity Criticality Documentation Date Start Date Code Code System Note Provider Name and Address Organization Details Recorded Time 1415 Product containin g penicilli n (product) medicatio n Not available Not available Not available 07/03/2022 69381 8001 SNOMED BENTONLENIN [facility]O [facility] 14:58:48 64471 penicilli n V potassium medicatio n anaphylax is severe high 10/19/2022 35236 5 RxNorm React ion: Throa t swell ed up. Joint s pramod ed. Park Farris [facility] 4 14:12:32 Medications Name Sig Start Date Stop Date Status Note LastModified by Organization Details LastModified Time prednison e 10 mg tablet Take 2 tabs daily for 4 days and 1 tab daily for 4 days 2024 active Not Available Not Available Not Avai lable ibuprofen 800 mg tablet 02/04 completed Not Available Not Available Not Available hydroxyzi ne HCl 25 mg tablet TAKE 1 TABLET BY MOUTH THREE TIMES DAILY NEEDED 07/03 completed Not Available Not Available Not Available ondansetr on 4 mg disintegr ating tablet DISSOLVE 1 TABLET IN MOUTH THREE TIMES DAILY NEEDED FOR NAUSEA AND VOMITING 09/19 completed Not Available Not Available Not Available fluoxetin e 20 mg capsule TAKE 1 CAPSULE BY MOUTH ONCE DAILY active Not Available Not Available No t Available escitalop sujey 10 mg tablet Take 1 tablet every day by oral route. 04/08 completed Not Available Not Available Not Available Tri-Sprin eryn (28) 0.18 mg(7)/0.2 15 mg(7)/0.2 5 mg(7)-0.0 35 mg tablet TAKE 1 TABLET BY MOUTH ONCE DAILY active Not Available Not Available No t Available 04/08 completed Not Available Not Available Not Available Vitamin daily 12/02 completed Recorded 04/30/19 1:02PM by Cameron pereira, Office Visit; Refill Quantity : 90; Tablet; Not Available Not Available Not Available Vitals Date Recorded Body height Body mass index (BMI) Body weight Respiratory rate Oxygen saturation Oxygen saturation in Arterial blood by Pulse oximetry Heart rate Body temperature Systolic And Diastolic Provider Name and Address Organization Details Last Updated DateTime 170.18 cm 22.3 kg/m2 98391.9 2 g 18 /min 99 % 99 % 65 /min 98.5 [degF] 122/70 mm[Hg] LIANE VALENZUELA [facility] 14:10:01 Social History Question Answer Notes LastModified by Organizat ion Details LastModified Time Tobacco Smoking Status Former Smoker CAMERON vora [facility] 10/21/2022 13:06:56 When Did You Quit Smoking? 1-5yearssince jericho [place]fall Information not available 11/18/2022 What Was The Date Of Your Most Recent Tobacco Screening? 09/03/2024 [email or web address] Information not available 09/03/2024 What Is Your Relationship Status? Domestic Partner Information not available 10/21/2022 Are You Sexually Active? Yes Information not available 10/21/2022 Sex: Unknown Functional Status Question Answer Note LastModified by Organizat ion Details LastModified Time Do you use any illicit or recreational drugs? No [email or web address] Information not available 11/18/2022 Do you or have you ever used any other forms of tobacco or nicotine? Yes Information not available 11/18/2022 What is your level of alcohol consumption? None Information not available 11/18/2022 Do you or have you ever used e-cigarettes or vape? Current user of electronic cigarettes Information not available 11/18/2022 Mental Status None recorded. Family History Relationship Description Onset Age of this Age Resolved Age Notes LastModified by Organization Details LastModified Time Maternal Grandmother Cerebrovascu lar accident [email or web address] Not available 12/16/2022 14:03:50 Medical History No medical history recorded. Gynecological History Statement/Question Response Abnormal Pap N Date of Last Pap Smear 05/29/2022 Obstetrics History GPAL:G 1 P 1 0 0 1 Type Value Full Term 1 Living 1 Total 1 Immunizations Vaccine Type Date Status Note Provider Nam e and Address Organization Details Recorded Time Tdap 3 completed Rich Riggs MD [address] [place] [address], [phone], [facility] 11/04/2022 12:12:03 HPV9 6 completed TREBA NEUSCHWANDER diony, [facility] 08/26/2022 16:27:06 HPV9 6 completed TREBA NEUSCHWANDER diony, [facility] 08/26/2022 16:27:06 HPV9 7 completed TREBA NEUSCHWANDER diony, [facility] 08/26/2022 16:27:06 IPV 0 completed TREBA NEUSCHWANDHILARIO vora, [facility] 08/26/2022 16:27:06 IPV 4 completed TREBA NEUSCHWANDER null, [facility] 08/26/2022 16:27:06 IPV 9 completed TREBA NEUSCHWANDER null, [facility] 08/26/2022 16:27:06 IPV 0 completed TREBA NEUSCHWANDER null, [facility] 08/26/2022 16:27:06 MMR 4 completed TREBA NEUSCHWANDER null, [facility] 08/26/2022 16:27:06 MMR 0 completed TREBA NEUSCHWANDER null, [facility] 08/26/2022 16:27:06 meningococcal MPSV4 6 completed TREBA NEUSCHWANDER null, [facility] 08/26/2022 16:27:06 DT (pediatric) 0 completed TREBA NEUSCHWANDER null, [facility] 08/26/2022 16:27:06 DT (pediatric) 0 completed TREBA NEUSCHWANDER null, [facility] 08/26/2022 16:27:06 DT (pediatric) 4 completed TREBA NEUSCHWANDER null, [facility] 08/26/2022 16:27:06 Tdap 3 completed TREBA NEUSCHWANDER null, [facility] 08/26/2022 16:27:06 varicella 4 completed TREBA NEUSCHWANDER null, [facility] 08/26/2022 16:27:06 Hep B, unspecified formulation 0 completed TREBA NEUSCHWANDER null, [facility] 08/26/2022 16:27:06 Hep B, unspecified formulation 9 completed TREBA NEUSCHWANDER null, [facility] 08/26/2022 16:27:06 Hep B, unspecified formulation 9 completed TREBA NEUSCHWANDER null, [facility] 08/26/2022 16:27:06 Hep A, adult 0 completed TREBA NEUSCHWANDER null, [facility] 08/26/2022 16:27:06 Hep A, ped/adol, 2 dose 7 completed TREBA NEUSCHWANDER null, [facility] 08/26/2022 16:27:06 Hib (PRP-T) 0 completed TREBA NEUSCHWANDER null, [facility] 08/26/2022 16:27:06 Hib (PRP-T) 0 completed TREBA NEUSCHWANDER null, [facility] 08/26/2022 16:27:06 Hib (PRP-T) 9 completed TREBA NEUSCHWANDER null, [facility] 08/26/2022 16:27:06 Hib (PRP-T) 0 completed TREBA NEUSCHWANDER null, [facility] 08/26/2022 16:27:06 DTaP 9 completed TREBA NEUSCHWANDER null, [facility] 08/26/2022 16:27:06 DTaP 0 completed TREBA NEUSCHWANDER [facility] 08/26/2022 16:27:06 Past Encounters Encounter ID Performer Location Encounter Start Date Encounter Closed Date Diagnosis/Indication Diagnosis SNOMED-CT Code Diagnosis ICD10 Code Diagnosis Note [id number] William Ray MD [facility] ([facility]) [address] [place] [address] 08/23/2024 11:43:51 08/24/2024 10:54:21 Binge drinker 795677076 F10.10 Mixed anxi ety and depressive disorder 231943399 F41.9 F32.A [id number] LISA JIMENEZ [facility] ([facility]) [address] [place], [place] [address] 09/03/2024 10:03:22 09/03/2024 10:41:12 Acute gastroenteritis 90861847 K52.9 Discussed BRATS diet, small frequent sips of fluid. Rest.VSS. No signs of acute abd on exam today.If you develop fever, no urine output over 24 hours, bloody stools/tiffanie sis, abd pain, or concerns arise return for re-eval.wo rk excuse for today provided. [id number] ZOE VEGA APRN [facility] ([facility]) [address] [place] [phone] 09/19/2024 13:42:40 09/23/2024 18:12:40 Bronchitis 97181266 J40 Health Concerns Section Related Observation LastModified by Organization Detai ls LastModified Time None Recorded Concern Status LastModified by Organization Details LastModified Time None Recorded Payers Encounter Date Sequence Insurance Name Policy Number Policy Pritchett Covered Member ID Pritchett Member ID Guarantor Name 09/19/2024 1 [employer] [id number] Ashlee Osborne [id number] Ashlee Osborne Notes Date Note Type Note Provider Name and Address Organization Details Recorded Time 09/19/2024 text/html walk-in; PCP Dr. Ray Patient c/o cough, congestion and sore throat for past three days. Getting worse. This morning she woke up and has no voice. Has taken mucinex. ZOE VEGA APRN [address] [place], [address], [facility] [place] [facility] 09/23/2024 18:12:38 OBGyn Episode No OBEpisode recorded.
--- OUTSIDE RECORDS SUMMARY | 2024-09-24 05:59 | XMS_ITS | Data Portability ---
Author Organization PAKO Perez Elizabeth [facility], CristianLTyra, [facility] Address [address] [address] Care Team Providers Care Distance Learning Technician Name Role Phone WILLIAM RAY Primary Care Provider Unavailabl e Assessment No assessment recorded. Plan of Treatment Reminders Order Date Submit Date Provider Last Modified By Organization Details Last Modified Time Details Appointments OFFICE VISIT 15 2024 10:45A Natan Ray MD Not available Not available Not available ASSESS MENT 2024 03:00P Natan ONEAL LCSW Not available Not available Not available Lab None record ed. Referral mental health clinic referr al 2024 025 [email or web address] Not available 08/27/2024 16:15:51 Procedures None record ed. Surgeries None record ed. Imaging None record ed. Medication Orders predni sone 10 mg tablet 2024 025 [facility], [address], [place], [address], 09/19/2024 14:56:29 ondans etron 4 mg disint egrati ng tablet 2024 025 [email or web address] [facility] #[id number], [address] [facility], [place], [address], 09/19/2024 14:10:24 fluoxe sander 20 mg capsul e 2024 025 [facility], [address], [place], [address], 08/23/2024 12:29:28 escita lopram 10 mg tablet 2022 023 [email or web address] [facility], [address], [place], [address], 04/08/2023 15:56:07 Tri-Sp rintec (28) 0.18 mg(7)/ 0.215 mg(7)/ 0.25 mg(7)- 0.035 mg tablet 2022 023 [facility], [address], [place], [address], 02/04/2023 12:20:12 Patient TargetsNo targets recorded. Patient Instructions Encounter Date Encounter Id Patient Instructions Last Modified By Organization Details Last Modified Time 09/19/2024 [id number] Increase fluids and may take Dayquil OTC. Follow up for changes. [email or web address] Not available 09/19/2024 14:57:08 Reason for Referral Mental Health Clinic Referra l for Mixed anxiety and depressive disorder Referring Physician: Willaim Ray, Family Medicine, Encounter Date: 08/23/2024 Problems Name Problem SNOMED Code Status Onset Date Resolution Date Notes Provider Name and Address Organization Details Recorded Time Normal 78240928 Completed 2022 Rich Riggs MD [address] [place] [address], [phone] [place] [address] Shanae, L.L.CCristian 3 12:11:19 Binge drinker 314861367 Active 2024 MACKENZIE vora [facility], L.L.CCristian 5 12:38:13 Mixed anxiety and depressiv e disorder 275339646 Active 2024 MACKENZIE vora [facility], L.L.CCristian 5 12:38:13 Normal in primigrav teresa 948463450087 103 Completed 2022 Rich Riggs MD [address] [place] [address], [phone] , [facility], LCristianLTyra 3 12:11:19 Problem Notes None recorded. Procedures Surgical History Date Name Laterality Status Provider Name and Address Organization Details Recorded Time 3 Date of Last Pap Smear completed CAMERON ORTEGA [facility], SailajaLTyra 02/04/2023 11:53:02 Imaging Results None recorded. Procedure Notes None recorded. Medical Equipment None Reported. Allergies Allergen ID Allergen Name Allergen Category Reaction Reaction Severity Criticality Documentation Date Start Date Code Code System Note Provider Name and Address Organization Details Recorded Time 1415 Product containin g penicilli n (product) medicatio n Not available Not available Not available 07/03/2022 37155 8001 SNOMED CAMERON Herrera [facility], LCristianLCristianCCristian 3 14:58:48 09069 penicilli n V potassium medicatio n anaphylax is severe high 10/19/202235670 5 RxNorm React ion: Throa t pramod ed up. Joint s pramod ed. Park vora [facility], L.L.CCristian 4 14:12:32 Medications Name Sig Start Date [...] 12/02 completed Recorded 04/30/19 1:02PM by Cameron Santos nder, Office Visit; Refill Quantity : 90; Tablet; Not Available Not Available Not Available Vitals Date Recorded Body height Body mass index (BMI) Body weight Oxygen saturation Oxygen saturation in Arterial blood by Pulse oximetry Heart rate Respiratory rate Body temperature Systolic And Diastolic Provider Name and Address Organization Details Last Updated DateTime 4 167.64 cm 23.9 kg/m2 92128.6 7 g 99 % 99 % 92 /min 18 /min 98.2 [degF] 112/62 mm[Hg] CAMERON MONTERO [facility], L.L.CCristian 4 15:55:36 Date Recorded Body weight Oxygen saturation Oxygen saturation in Arterial blood by Pulse oximetry Heart rate Systolic And Diastolic Provider Name and Address Organization Details Last Updated DateTime 5 87711.0 8 g 98 % 98 % 78 /min 122/64 mm[Hg] MACKENZIE ANTHONY [facility], L[facility] 5 11:54:50 Date Recorded Body weight Body mass index (BMI) Body height Body temperature Heart rate Oxygen saturation Oxygen saturation in Arterial blood by Pulse oximetry Respiratory rate Systolic And Diastolic Provider Name and Address Organization Details Last Updated DateTime 5 74866.2 2 g 22.1 kg/m2 170.18 cm 98.3 [degF] 77 /min 99 % 99 % 17 /min 126/68 mm[Hg] Sahara Khan [facility] 5 10:13:15 Date Recorded Body height Body mass index (BMI) Body weight Respiratory rate Oxygen saturation Oxygen saturation in Arterial blood by Pulse oximetry Heart rate Body temperature Systolic And Diastolic Provider Name and Address Organization Details Last Updated DateTime 5 170.18 cm 22.3 kg/m2 78787.9 2 g 18 /min 99 % 99 % 65 /min 98.5 [degF] 122/70 mm[Hg] LIANE VALENZUELA [facility] 5 14:10:01 Date Recorded Body height Body mass index (BMI) Body weight Oxygen saturation Oxygen saturation in Arterial blood by Pulse oximetry Heart rate Respiratory rate Body temperature Systolic And Diastolic Provider Name and Address Organization Details Last Updated DateTime 3 167.64 cm 23.1 kg/m2 34626.7 0891 g 98 % 98 % 76 /min 18 /min 98.4 [degF] 110/60 mm[Hg] BENTONLENIN YOVANI MONTERO [facility] 3 11:52:06 Social History Question Answer Notes LastModified by [employer] Details LastModified Time Tobacco Smoking Status Former Smoker CAMERON vora [facility] 10/21/2022 13:06:56 When Did You Quit Smoking? 1-5yearssince lastcigarette Information not available 11/18/2022 What Was The Date Of Your Most Recent Tobacco Screening? 09/03/2024 [email or web address] Information not available 09/03/2024 What Is Your Relationship Status? Domestic Partner Information not available 10/21/2022 Are You Sexually Active? Yes Information not available 10/21/2022 Sex: Unknown Functional Status Question Answer Note LastModified by [employer] Details LastModified Time Do you use any illicit or recreational drugs? No Information not available 11/18/2022 Do you or [...] Time Tdap 3 completed Rich Riggs MD [address] [place] [address], [phone], [facility] 11/04/2022 12:12:03 HPV9 6 completed TREBA NEUSCHWANDER null, [facility] 08/26/2022 16:27:06 HPV9 6 completed TREBA NEUSCHWANDER null, [facility] 08/26/2022 16:27:06 HPV9 7 completed TREBA NEUSCHWANDER null, [facility] 08/26/2022 16:27:06 IPV 0 completed TREBA NEUSCHWANDER null, [facility] 08/26/2022 16:27:06 IPV 4 completed TREBA NEUSCHWANDER null, [facility] 08/26/2022 16:27:06 IPV 9 completed TREBA NEUSCHWANDER null, [facility] 08/26/2022 16:27:06 IPV 0 completed TREBA NEUSCHWANDER null, [facility] 08/26/2022 16:27:06 MMR 4 completed TREBA NEUSCHWANDER null, [facility] 08/26/2022 16:27:06 MMR 0 completed TREBA NEUSCHWANDER null, [facility] 08/26/2022 16:27:06 meningococcal MPSV4 6 completed TREBA NEUSCHWANDER null, [facility] 08/26/2022 16:27:06 DT (pediatric) 0 completed TREBA NEUSCHWANDER null, [facility] 08/26/2022 16:27:06 DT (pediatric) 0 completed TREBA NEUSCHWANDER null, [facility] 08/26/2022 16:27:06 DT (pediatric) 4 completed TREBA NEUSCHWANDER null, [facility] 08/26/2022 16:27:06 Tdap 3 completed TREBA NEUSCHWANDER null, [facility] 08/26/2022 16:27:06 varicella 4 completed TREBA NEUSCHWANDER null, [facility] 08/26/2022 16:27:06 Hep B, unspecified formulation 0 completed TREBA NEUSCHWANDER null, [facility] 08/26/2022 16:27:06 Hep B, unspecified formulation 9 completed TREBA NEUSCHWANDER null, [facility] 08/26/2022 16:27:06 Hep B, unspecified formulation 9 completed TREBA NEUSCHWANDER null, [facility] 08/26/2022 16:27:06 Hep A, adult 0 completed TREBA NEUSCHWANDER null, [facility] 08/26/2022 16:27:06 Hep A, ped/adol, 2 dose 7 completed TREBA NEUSCHWANDER null, [facility] 08/26/2022 16:27:06 Hib (PRP-T) 0 completed TREBA NEUSCHWANDER null, [facility] 08/26/2022 16:27:06 Hib (PRP-T) 0 completed TREBA NEUSCHWANDER null, [facility] 08/26/2022 16:27:06 Hib (PRP-T) 9 completed TREBA NEUSCHWANDER null, [facility] 08/26/2022 16:27:06 Hib (PRP-T) 0 completed TREBA NEUSCHWANDER null, [facility] 08/26/2022 16:27:06 DTaP 9 completed TREBA NEUSCHWANDER null, [facility] 08/26/2022 16:27:06 DTaP 0 completed TREBA NEUSCHWANDER null, [facility] 08/26/2022 16:27:06 Past Encounters Encounter ID Performer Location Encounter Start Date Encounter Closed Date Diagnosis/Indication Diagnosis SNOMED-CT Code Diagnosis ICD10 Code Diagnosis Note [id number] Rich Riggs MD [facility] ([facility]) [address] [place] [id number] 5 07/03/2022 14:38:31 07/10/2022 09:35:14 62135962 Z33.1 [id number] Rich Riggs MD [facility] ([facility]) [address] [place] [id number] 5 07/29/2022 16:16:14 07/29/2022 17:19:35 Normal in multigravida 7870874567 22629 Z34.82 [id number] Rich Riggs MD [facility] ([facility]) [address] [place] [address] [id number] 5 07/29/2022 16:17:41 07/29/2022 20:08:28 55003405 Z33.1 Normal pre gnancy in primigravida 4091795645 19182 Z34.02 Gestation period, 19 weeks 46721979 Z3A.19 [id number] Rich Riggs MD [facility] ([facility]) [address] [place] [id number] 5 08/26/2022 15:19:12 08/26/2022 20:27:43 65858660 Z33.1 Gestation period, 23 weeks 45207830 Z3A.23 [id number] Rich Riggs MD [facility] ([facility]) [address] [place] [address] [id number] 5 09/23/2022 14:19:12 09/23/2022 16:13:55 18101079 Z33.1 Gestation period, 27 weeks 48713019 Z3A.27 [id number] Rich Riggs MD [facility]) [address] [place] [address] [id number] 5 10/02/2022 11:13:49 10/02/2022 15:06:42 [id number] Rich Riggs MD [facility] ([facility]) [address] [place] [id number] 5 10/14/2022 16:54:34 10/14/2022 17:40:19 [id number] Rich Riggs MD [facility] ([facility]) [address] [place] [address] [id number] 5 10/21/2022 12:49:23 10/21/2022 17:33:30 21720330 Z33.1 Normal 9032594 2 Z34.03 Gestation period, 31 weeks 55117585 Z3A.31 [id number] Rich Riggs MD [facility] ([facility]) [address] [place] [address] [id number] 5 11/04/2022 11:23:30 11/04/2022 19:17:15 Normal 24764849 Z34.03 Gestation period, 33 weeks 98612624 Z3A.33 [id number] Rich Riggs MD [facility] ([facility]) [address] [place] [address] [id number] 5 11/18/2022 14:29:34 11/18/2022 16:46:56 Normal in primigravida 0817189961 55178 Z34.02 Gestation period, 35 weeks 83047958 Z3A.35 [id number] Rich Riggs MD [facility] ([facility]) [address] [place] [address] [id number] 5 11/28/2022 16:01:12 12/06/2022 18:34:38 Normal 99178074 Z34.03 Normal pre gnancy in primigravida 2524726657 19022 Z34.03 Gestation period, 37 weeks 35513480 Z3A.37 [id number] Rich Riggs MD [facility] ([facility]) [address] [place] [address] [id number] 5 12/02/2022 14:13:44 12/09/2022 10:22:30 Normal in primigravida 6731189189 92502 Z34.03 Gestation period, 37 weeks 11712228 Z3A.37 [id number] Rich Riggs MD [facility] ([facility]) [address] [place] [address] [id number] 5 12/09/2022 13:50:27 12/09/2022 17:23:40 Normal in primigravida 4232331594 76123 Z34.03 Gestation period, 38 weeks 06395455 Z3A.38 [id number] Rich Riggs MD [facility] ([facility]) [address] [place] [address] [id number] 5 12/16/2022 13:52:52 12/17/2022 11:22:17 Normal in primigravida 5197239264 21758 Z34.03 Gestation period, 39 weeks 71244975 Z3A.39 [id number] Rich Riggs MD [facility] ([facility]) [address] [place] [id number] 5 02/04/2023 11:23:24 02/04/2023 12:32:20 care 847003374 Z39.2 Contracept ion care management 541086579 Z30.9 Anxiety 77926015 F41.9 [id number] Rich Riggs MD [facility] ([facility]) [address] [place] [address] [id number] 5 04/08/2023 15:41:42 04/08/2023 18:00:10 Anxiety 42304182 F41.9 [id number] William Ray MD [facility] ([facility]) [address] [place] [address] [id number] 5 08/23/2024 11:43:51 08/24/2024 10:54:21 Binge drinker 523862239 F10.10 Mixed anxi ety and depressive disorder 842446686 F41.9 F32.A [id number] LISA JIMENEZ [facility] ([facility]) [address] [place] [id number] 5 09/03/2024 10:03:22 09/03/2024 10:41:12 Acute gastroenteritis 53102172 K52.9 Discussed BRATS diet, small frequent sips of fluid. Rest.VSS. No signs of acute abd on exam today.If you develop fever, no urine output over 24 hours, bloody stools/tiffanie sis, abd pain, or concerns arise return for re-eval.wo rk excuse for today provided. [id number] ZOE VEGA APRN [facility] ([facility]) [address] [place] [address] [id number] 5 09/19/2024 13:42:40 09/23/2024 18:12:40 Bronchitis 36208426 J40 Health Concerns Section Related Observation LastModified by Organization Detai ls LastModified Time None Recorded Concern Status LastModified by Organization Details LastModified Time None Recorded Advance Directives Directive None Recorded Payers Insurance Date Sequence Insurance Name Policy Number Policy Pritchett Covered Member ID Pritchett Member ID Guarantor Name 09/08/2024 2 [employer] - [place] [facility] Ashleemaxime Boldeny [id number] Ashlee Tami Henvitay 08/25/2024 [place] [facility] ([facility] L) [facility] Ashlee Tami Boldeny [id number] Ashlee K Hennesy 08/25/2024 3 [place] Ashlee K Henvitay [id number] Ashlee K Hennesy 08/06/2022 1 UMR [id number] Christian Boldenpepe [id number] Ashlee K Saivitay 09/19/2024 1 [place] [id number] Ashlee K Hennesy [id number] Ashlee K Hennesy 09/08/2024 [place] [facility] (INSTITUTION[facility] L) [facility] Ashlee Tami Gibbsvitay [id number] Ashlee Tami Gibbsjim Notes Date Note Type Note Provider Name and Address Organization Details Recorded Time 02/04/2023 text/html VisitReported bypatient.Onset/Timing :date of delivery: (12-18-22) Quality: Context:no complications Associated Symptoms:no abnormal bleeding; no vaginal discharge; no pelvic pain; no constipation; no dysuria; no fever; no mastitis; normal mood; no uterine cramping Contraception Plan:oral contraceptive pill Rich Riggs MD [address] [place] [address], [phone], [facility] L.LCristianC. 02/04/2023 12:32:06 04/08/2023 text/html Generalized Anxi ety DisorderReported bypatient.Severity:mil d Associated Symptoms:no difficulty concentrating; no difficulty controlling worry; no chest pain; no shortness of breath; no nausea; no fatigue; no irritability; no sleep disturbances; mild anxiety Pt states she did not start the escitalopram, she states she did quit breast feeding and she is starting to level out. Rich Riggs MD [address] [place] [address], [phone], [facility], LCristianLCristianC. 04/08/2023 16:14:34 08/23/2024 text/html Generalized Anxi ety DisorderReported bypatient.Context:depr ession; alcohol abuse Associated Symptoms:difficulty concentrating;difficul ty controlling worry;excess anxiety;high irritability Went to ER on 07/30/24 for alcohol withdrawal, states that she is doing better, was drinking about three days a week.Has not drank for about 8 or 9 days.Would like to talk about anxiety and depression, was taking lexapro and has been off of that for about 2 years, she did not like that. She is willing to try something else for her anxiety and depression. William Ray MD [address] [place], [address], [facility] 08/23/2024 12:29:25 09/03/2024 text/html walk in ptPT has thrown up x5 this morning, called in and needs a note. nausea started last night. couple diarrhea stools. no fever. took naproxen this morning for a mendoza. has been keeping sips of water down this morning. LISA JIMENEZ [address] [place], [address], [facility] 09/03/2024 10:34:54 09/19/2024 text/html walk-in; PCP Dr. Ray Patient c/o cough, congestion and sore throat for past three days. Getting worse. This morning she woke up and has no voice. Has taken mucinex. ZOE VEGA APRN [address] [place], [address], [facility] 09/23/2024 18:12:38 OBGyn Episode Ob Episode Information Episode Created Date Number of Fetuses Patient Bloodtype Patient rh Status Prepregnancy Weight lbs Domestic Partner Domestic Partner Phone Father Name Radio News Writer Status 02/05/20 23 1 DELETED Lamont Calculation Initial Lamont Date Initial Exam Date Initial Exam Provider Initial Ultrasound Date Last Menstrual Period Date Ultra Sound Weeks Gestation 0 Eighteen To Twenty Week Lamont Update Ultra Sound Date Fundal Height At Umbil Quickening Date Ultra Sound Latest Weeks Gestation Final Lamont Confirmed By Final Lamont Confirmed Date Final Lamont Date Ultra Sound Latest Days Gestation 0 0 Menstrual History Last Menstrual Date Menses Monthly On Bcp Conception Prior Menses Frequency Hcg Plus Date Menarche Onset Age Delivery Information Delivery Date Delivery Type Labor Anesthesia Weeks Gestation Incision Type Labor Labor Length Hrs Delivered By Post Complications Tubal Sterilization Discharge Date Comments 3 40 Remlap Discharge Information Feeding Method Contraceptive Method Maternal HG B and HCT Levels Ob Episode Information Episode Created Date Number of Fetuses Patient Bloodtype Patient rh Status Prepregnancy Weight lbs Domestic Partner Domestic Partner Phone Father Name Radio News Writer Status 07/04/19 23 1 A Positive CLOSED Fetus Data First Name Last Name Admitted to NICU Weight (g) Sex Living Outcome Pediatric Complications Fetus ID Race Codes Race Delivery Type Emeral d 3118.44 5 F true Full Term 472 VAGINAL Problems Problem Notes Problem Name Start Date End Date Resolution Snomed Code Not e Normal in primigravida 07/29/2022 [id number] Normal 11/04/2022 79497023 Lamont Calculation Initial Lamont Date Initial Exam Date Initial Exam Provider Initial Ultrasound Date Last Menstrual Period Date Ultra Sound Weeks Gestation 12/18/2022 07/03/2022 05/30/2022 0 Eighteen To Twenty Week Laomnt Update Ultra Sound Date Fundal Height At Umbil Quickening Date Ultra Sound Latest Weeks Gestation Final Lamont Confirmed By Final Lamont Confirmed Date Final Lamont Date Ultra Sound Latest Days Gestation 0 0 Pre-richard Flowsheet Flowsheet Date 07/03/2022 Blanco Score Blood Edema Fundus Height Fundus Units Glucose Ketones Leukocytes Nitrite Labor Signs Protein Cervic Dilation Cervic Effacement Cervic Station none none none Negative neg Type Weight in lbs Pre/Post Dialysis Refused Weight 150.809179853170 BP Diastolic BP Location Tested BP Systolic BP Type 70 R arm 128 sitting Fetus Heart Rate Present A 156 Present Fetus Movement Comments constipation, headache Flowsheet Date 07/29/2022 Blanco Score Blood Edema Fundus Height Fundus Units Glucose Ketones Leukocytes Nitrite Labor Signs Protein Cervic Dilation Cervic Effacement Cervic Station 20 cm none none neg Type Weight in lbs Pre/Post Dialysis Refused Weight 155.19576078047 BP Diastolic BP Location Tested BP Systolic BP Type 62 124 Fetus Heart Rate Present A 160 Present Fetus Movement A No Comments feeling good Flowsheet Date 07/29/2022 Blanco Score Blood Edema Fundus Height Fundus Units Glucose Ketones Leukocytes Nitrite Labor Signs Protein Cervic Dilation Cervic Effacement Cervic Station Type Weight in lbs Pre/Post Dialysis Refused BP Diastolic BP Location Tested BP Systolic BP Type Fetus Heart Rate Present Fetus Movement Comments Flowsheet Date 07/31/2022 Blanco Score Blood Edema Fundus Height Fundus Units Glucose Ketones Leukocytes Nitrite Labor Signs Protein Cervic Dilation Cervic Effacement Cervic Station Type Weight in lbs Pre/Post Dialysis Refused BP Diastolic BP Location Tested BP Systolic BP Type Fetus Heart Rate Present Fetus Movement Comments u/s of 07/29/22- EDC-12/17/22, EGA-19.6, breech presentation, placenta anterior grade 0, normal AFV, FHT-167, anatomic survey is normal, Flowsheet Date 08/26/2022 Blanco Score Blood Edema Fundus Height Fundus Units Glucose Ketones Leukocytes Nitrite Labor Signs Protein Cervic Dilation Cervic Effacement Cervic Station none 23 none none Negative neg Type Weight in lbs Pre/Post Dialysis Refused Weight 155.230540206387 BP Diastolic BP Location Tested BP Systolic BP Type 72 R arm 124 sitting Fetus Heart Rate Present A 146 Present Fetus Movement A Yes Comments back pain Flowsheet Date 08/26/2022 Blanco Score Blood Edema Fundus Height Fundus Units Glucose Ketones Leukocytes Nitrite Labor Signs Protein Cervic Dilation Cervic Effacement Cervic Station Type Weight in lbs Pre/Post Dialysis Refused BP Diastolic BP Location Tested BP Systolic BP Type Fetus Heart Rate Present Fetus Movement Comments [facility] RA complete Flowsheet Date 09/23/2022 Blanco Score Blood Edema Fundus Height Fundus Units Glucose Ketones Leukocytes Nitrite Labor Signs Protein Cervic Dilation Cervic Effacement Cervic Station none none none Negative neg Type Weight in lbs Pre/Post Dialysis Refused Weight 158.694689045747 BP Diastolic BP Location Tested BP Systolic BP Type 70 122 Fetus Heart Rate Present A 148 Fetus Movement A Yes Comments back and pelvic pain, glucos e screen today Flowsheet Date 10/02/2022 Blanco Score Blood Edema Fundus Height Fundus Units Glucose Ketones Leukocytes Nitrite Labor Signs Protein Cervic Dilation Cervic Effacement Cervic Station Type Weight in lbs Pre/Post Dialysis Refused BP Diastolic BP Location Tested BP Systolic BP Type Fetus Heart Rate Present Fetus Movement Comments Flowsheet Date 10/14/2022 Blanco Score Blood Edema Fundus Height Fundus Units Glucose Ketones Leukocytes Nitrite Labor Signs Protein Cervic Dilation Cervic Effacement Cervic Station Type Weight in lbs Pre/Post Dialysis Refused BP Diastolic BP Location Tested BP Systolic BP Type Fetus Heart Rate Present Fetus Movement Comments Flowsheet Date 10/21/2022 Blanco Score Blood Edema Fundus Height Fundus Units Glucose Ketones Leukocytes Nitrite Labor Signs Protein Cervic Dilation Cervic Effacement Cervic Station 32 cm none trace Negative neg Type Weight in lbs Pre/Post Dialysis Refused Weight 158.416410340227 BP Diastolic BP Location Tested BP Systolic BP Type 64 R arm 120 sitting Fetus Heart Rate Present A 164 Present Fetus Movement A No Comments occ headache, low back pain, pelvic pain, script given for TDap Flowsheet Date 11/04/2022 Blanco Score Blood Edema Fundus Height Fundus Units Glucose Ketones Leukocytes Nitrite Labor Signs Protein Cervic Dilation Cervic Effacement Cervic Station 34 cm none neg Type Weight in lbs Pre/Post Dialysis Refused Weight 161.325752861473 BP Diastolic BP Location Tested BP Systolic BP Type 76 R arm 118 sitting Fetus Heart Rate Present A 148 Present Fetus Movement A Yes Comments low back pain, TDaP given to day Flowsheet Date 11/18/2022 Blanco Score Blood Edema Fundus Height Fundus Units Glucose Ketones Leukocytes Nitrite Labor Signs Protein Cervic Dilation Cervic Effacement Cervic Station none trace trace Type Weight in lbs Pre/Post Dialysis Refused Weight 163.740598797665 BP Diastolic BP Location Tested BP Systolic BP Type 78 116 sitting Fetus Heart Rate Present A 152 Present Fetus Movement A Yes Comments low back pain, intermittent pelvic pain Flowsheet Date 11/28/2022 Blanco Score Blood Edema Fundus Height Fundus Units Glucose Ketones Leukocytes Nitrite Labor Signs Protein Cervic Dilation Cervic Effacement Cervic Station none trace Negative trace 1cm 30% -4 Type Weight in lbs Pre/Post Dialysis Refused Weight 164.536785831212 BP Diastolic BP Location Tested BP Systolic BP Type 70 120 sitting Fetus Heart Rate Present A 154 Present Fetus Movement A Yes Comments Back/pelvic pain, vaginal pr essure, EPI consult set for 12/09/22, Group B today Flowsheet Date 12/02/2022 Blanco Score Blood Edema Fundus Height Fundus Units Glucose Ketones Leukocytes Nitrite Labor Signs Protein Cervic Dilation Cervic Effacement Cervic Station Type Weight in lbs Pre/Post Dialysis Refused BP Diastolic BP Location Tested BP Systolic BP Type Fetus Heart Rate Present Fetus Movement Comments GrpB Negative. OB records fa xed. JR/bh Flowsheet Date 12/02/2022 Blanco Score Blood Edema Fundus Height Fundus Units Glucose Ketones Leukocytes Nitrite Labor Signs Protein Cervic Dilation Cervic Effacement Cervic Station 37 cm none neg 1cm 40% -4 Type Weight in lbs Pre/Post Dialysis Refused Weight 163.216601779221 BP Diastolic BP Location Tested BP Systolic BP Type 82 118 Fetus Heart Rate Present A 164 Present Fetus Movement A Yes Comments pelvic pain, vaginal pressur e Flowsheet Date 12/09/2022 Blanco Score Blood Edema Fundus Height Fundus Units Glucose Ketones Leukocytes Nitrite Labor Signs Protein Cervic Dilation Cervic Effacement Cervic Station 37 cm none trace Negative neg 1cm 50% -3 Type Weight in lbs Pre/Post Dialysis Refused Weight 167.594643390822 BP Diastolic BP Location Tested BP Systolic BP Type 68 114 sitting Fetus Heart Rate Present A 142 Present Fetus Movement A Yes Comments vaginal pressure, pelvic geoffrey n, abdominal pain, cramping Flowsheet Date 12/16/2022 Blanco Score Blood Edema Fundus Height Fundus Units Glucose Ketones Leukocytes Nitrite Labor Signs Protein Cervic Dilation Cervic Effacement Cervic Station 37 cm none none Negative neg 1cm 80% - 3 Type Weight in lbs Pre/Post Dialysis Refused Weight 167.976581948294 BP Diastolic BP Location Tested BP Systolic BP Type 74 118 sitting Fetus Heart Rate Present A 150 Present Fetus Movement A Yes Comments abdominal pain/cramping, vag inal pressure, pelvic pain, back pain Flowsheet Date 02/04/2023 Blanco Score Blood Edema Fundus Height Fundus Units Glucose Ketones Leukocytes Nitrite Labor Signs Protein Cervic Dilation Cervic Effacement Cervic Station Type Weight in lbs Pre/Post Dialysis Refused Weight 143.120899354727 BP Diastolic BP Location Tested BP Systolic BP Type 60 110 sitting Fetus Heart Rate Present Fetus Movement Comments Menstrual History Last Menstrual Date Menses Monthly On Bcp Conception Prior Menses Frequency Hcg Plus Date Menarche Onset Age Genetic Screening And Infection History Question Response Note Patient's Age Will Be 35 Years Or Older At Estim ated Date of Delivery false Thalassemia (Martiniquais, Kinyarwanda, Mediterranean, Or Background): MCV < 80 false Neural Tube Defect (Meningomyelocele, Spina Bifi da, Or Anencephaly) false Congenital Heart Defect false Down Syndrome false Marcelo-Sachs (eg, Orthodox, Cajun, Greek-[place]) f alse Jennifer Disease false Sickle Cell Disease Or Trait () false Hemophilia Or Other Blood Disorders false Muscular Dystrophy false Cystic Fibrosis false Susy's Chorea false Intellectual Disability/Autism false If Yes, Was Person Tested For Fragile X? false Other Inherited Genetic Or Chromosomal Disorder false Maternal Metabolic Disorder (eg, Type 1 Diabetes , PKU) false Patient Or Baby's Father Had A Child With Defects Not Listed Above false Recurrent Loss, Or A Stillbirth false Medications (including Suppl ements, Vitamins, Herbs, OTC Drugs), Illicit/Recreational Drugs, Alcohol false If Yes, Agent(s) And Strength/Dosage false Any Other Genetic History false Live With Someone With TB Or Exposed To TB false Patient Or Partner Has History Of Genital Herpes false Rash Or Viral Illness Since Last Menstrual Perio d false History Of STD, Gonorrhea, Chlamydia, HPV, Syphi lis false Other Infection History false History of HIV false History of Hepatitis false Prior GBS-infected child false Hemoglobinopathy Or Carrier false Other Structural Defect false Recent Travel History Outside of Country false Mental Retardation/Autism false Delivery Information Delivery Date Delivery Type Labor Anesthesia Weeks Gestation Incision Type Labor Labor Length Hrs Delivered By Post Complications Tubal Sterilization Discharge Date Comments 3 40 Rich Riggs MD None Discharge Information Feeding Method Contraceptive Method Maternal HG B and HCT Levels
--- NOTE | 2024-09-24 06:17 | CTR_ITS ---
PROCEDURE INFORMATION: Exam: CT Head Without Contrast Exam date and time: 09/24/2024 6:23 AM Age: 23 years old Clinical indication: Injury or trauma; Blunt trauma (contusions or hematomas); With loss of consciousness; Injury details: PT was drinkning and fall 3 days ago on concrete hitting her face. PT states she is hallucinating, weak, sore all over, and C/O headache TECHNIQUE: Imaging protocol: Computed tomography of the head without contrast. Radiation optimization: All CT scans at this facility use at least one of these dose optimization techniques: automated exposure control; mA and/or kV adjustment per patient size (includes targeted exams where dose is matched to clinical indication); or iterative reconstruction. COMPARISON: CT head wo con* [id number] 01/03/2020 5:27 PM RADIATION DOSE METRICS: Total DLP (mGy-cm): 1037.18 FINDINGS: Brain: There is no evidence of acute parenchymal hemorrhage, extra-axial collection, or acute infarction. There is no mass effect, midline shift, or downward herniation. Cerebral ventricles: No ventriculomegaly. Paranasal sinuses: There is partial opacification the left maxillary sinus, ethmoid air cells, and left sphenoid sinus. Mastoid air cells: Visualized mastoid air cells are well aerated. Bones: Unremarkable. No acute fracture. Soft tissues: Unremarkable. CT/CT head wo con* [id number] IMPRESSION: No acute intracranial abnormality.
--- NOTE | 2024-09-24 06:17 | XRR_ITS ---
PROCEDURE INFORMATION: Exam: XR Chest Exam date and time: 09/24/2024 6:54 AM Age: 23 years old Clinical indication: Dyspnea and shortness of breath; Additional info: Dyspnea/cough TECHNIQUE: Imaging protocol: Radiologic exam of the chest. Views: 1 view. COMPARISON: CR XR chest 1V [id number] 07/12/2018 4:05 PM FINDINGS: Lungs: Unremarkable. No consolidation. Pleural spaces: Unremarkable. No pleural effusion. No pneumothorax. Heart/Mediastinum: Unremarkable. No cardiomegaly. Bones/joints: Unremarkable. XR/XR chest 1V portable [id number] IMPRESSION: No acute findings.
--- NOTE | 2024-09-24 06:26 | ED_ITS ---
HPI - Fall 2 General: Chief Complaint: Fall Stated Complaint: dizzy hallucinations. drank with med fall hit head Time Seen by Provider: 09/24/24 06:15 History of Present Illness: 22-year-old female presents to the emerg ency room reporting that she had a fall a few days ago related to heavy drinking. Patient reports she binge drinks up to 8 shots at a time on the normal goes sometimes days without drinking. She has intermittently been doing this for the last 3 years. Yesterday she fell and hit her head she threw up this morning she is also complaining of some mild neck pain. Associated symptoms-after fall: Denies abdominal pain, chest pain or neck pain Related Data Home Medications ?Medication ?Instructions ?Recorded ?Confirmed ibuprofen 200 mg tablet (Advil) 600 mg PO Q6H PRN Feve r Or Pain 07/30/24 09/24/24 norgestimate-ethinyl estradiol 1 tab PO DAILY 07/30/24 09/24/24 0.18mg/0.215mg/0.25mg-0.035mg(28)tablet (Tri-Sprintec (28)) fluoxetine 20 mg capsule 20 mg PO DAILY 09/24/2407/16 Previous Rx's ?Medication ?Instructions ?Recorded ondansetron HCl 4 mg tablet 4 mg PO Q6H PRN nausea and 09/24/24 vomiting #20 tabs Allergies Allergy/AdvReac Type Severity Reaction Status Date / Time amoxicillin Allergy Severe severe Verified 07/30/24 10:14 reaction. Penicillins Allergy ALGY-Hives Verified 07/30/24 10:14 Review of Systems 2 Const: Denies: fever(s) or chills Card: Denies: chest pain Resp: Denies: dyspnea GI: Denies: abdominal pain : Denies: dysuria, urinary frequency or urinary urgency Musc: Denies: neck pain or back pain Skin/Breast: Denies: rash PFSH ED 2 PFSH: Medical History (Updated 09/24/24 @ 08:38 by Enrique Gorman DO) No significant past medical history Surgical History No significant past surgical history Social History Smoking and tobacco/nicotine status: never used tobacco/nicotine Alcohol intake: current Alcohol intake frequency: 0-2 Drinks per Day Additional social history: Patient uses vaping Physical Exam 2 Const: GENERAL APPEARANCE: cooperative ORIENTATION/CONSCIOUSNESS: Yes awake, Yes oriented to person, Yes oriented to place and Yes oriented to time HENMT: COMMON NORMALS: normocephalic, atraumatic and hearing grossly normal bilaterally HEAD & SCALP: normocephalic and atraumatic Resp: COMMON NORMALS: normal respiratory effort, No retractions, No use of accessory muscles and clear to auscultation bilaterally AUSCULTATION: clear to auscultation bilaterally Cardio: COMMON NORMALS: regular rate, regular rhythm and No murmurs present (Cardio) RATE: regular rate RHYTHM: regular rhythm GI: COMMON NORMALS: Soft to palpation and No hepatosplenomegaly present A USCULTATION: Yes normoactive bowel sounds PALPATION: Yes Soft to palpation, No Tenderness to palpation present (GI), No Guarding due to palpation present (GI) and Yes No hepatosplenomegaly present Extremity: COMMON NORMALS: normal to inspection, capillary refill normal, no clubbing, cyanosis or edema, no calf tenderness and no pedal edema Neuro: SENSORIUM/ORIENTATION: Yes oriented to person, Yes oriented to place and Yes oriented to time Skin: COMMON NORMALS: no rashes or lesions noted GENERAL SKIN EXAM: no rashes or lesions noted Course 2 Vital Signs: Vital signs: Vital Signs Temperature 97.6 F 09/24/24 05:58 Pulse Rate 85 09/24/24 08:00 Respiratory Rate 17 09/24/24 08:00 Blood Pressure 118/72 09/24/24 08:00 Pulse Oximetry 99 09/24/24 08:00 Oxygen Delivery Me thod Room Air 09/24/24 08:00 MDM - Fall Medical Decision Making Patient awake and alert at this time. She is does not injectable blood level. She is not tachycardic and having a tremor will discharge home encouraged follow-up with outpatient either [facility] ED or [facility] for assistance with obtaining and maintaining her sobriety Medical Records I reviewed the patient's medical records. Lab Data I reviewed the patient's lab results. 09/24/24 06:30 09/24/24 06:30 Radiology Impressions Chest X-Ray 09/24/24 06:17 IMPRESSION: No acute findings. Head CT 09/24/24 06:17 IMPRESSION: No acute intracranial abnormality. Cervical Spine CT 09/24/24 06:33 IMPRESSION: No acute cervical spine fracture. Laboratory Results WBC 10.17 10^3/uL (3.29-11.43) 09/24/24 06:30 RBC 3.99 10^6/uL (3.85-5.65) 09/24/24 06:30 Hgb 11.90 g/dL (11.27-16.99) 09/24/24 06:30 Hct 36.5 % (36-47) 09/24/24 06:30 MCV 91.5 fl (85-98) 09/24/24 06:30 MCH 29.8 pg (27-33) 09/24/24 06:30 MCHC 32.6 g/dL (30-55) 09/24/24 06:30 RDW 13.3 % (12.1-15.1) 09/24/24 06:30 Plt Count 286 10^3/cmm (157-399) 09/24/24 06:30 MPV 8.4 fL (7.4-10.4) 09/24/24 06:30 Neut % (Auto) 62.2 % 09/24/24 06:30 Lymph % (Auto) 30.3 % 09/24/24 06:30 Ware % (Auto) 5.8 % 09/24/24 06:30 Eos % (Auto) 0.7 % 09/24/24 06:30 Baso % (Auto) 0.5 % 09/24/24 06:30 Neut # (Auto) 6.33 10^3/uL (1.8-7.7) 09/24/24 06:30 Lymph # (Auto) 3.1 10^3/uL (0.8-4.8) 09/24/24 06:30 Ware # (Auto) 0.6 10^3/uL (0.2-0.9) 09/24/24 06:30 Eos # (Auto) 0.1 10^3/uL (0.0-0.8) 09/24/24 06:30 Baso # (Auto) 0.1 10^3/uL (0.0-0.1) 09/24/24 06:30 Nucleated RBC % (auto) 0 % 09/24/24 06:30 Nucleated RBCs # 0.0 /100WBC 09/24/24 06:30 Sodium 138 mmol/L (136-145) 09/24/24 06:30 Potassium 3.7 mmol/L (3.5-5.1) 09/24/24 06:30 Chloride 99 mmol/L (98-107) 09/24/24 06:30 Carbon Dioxide 24 mmol/L (22-29) 09/24/24 06:30 Anion Gap 18.7 (5-19) 09/24/24 06:30 BUN 9 mg/dL (6-20) 09/24/24 06:30 Creatinine 0.8 mg/dL (0.5-0.9) 09/24/24 06:30 GFR Calculation 87.4 mL/min (90-130) L 09/24/24 06:30 Glucose 95 mg/dL (65-115) 09/24/24 06:30 Calculated Osmolality 284 mOsm/kg (285-295) L 09/24/24 06:30 Calcium 8.7 mg/dL (8.5-10.5) 09/24/24 06:30 Total Bilirubin 0.3 mg/dL (0.15-1.2) 09/24/24 06:30 AST 24 U/L (0-32) 09/24/24 06:30 ALT 22 U/L (0-33) 09/24/24 06:30 Alkaline Phosphatase 59 U/L (35-105) 09/24/24 06:30 Total Protein 6.9 g/dL (6.6-8.7) 09/24/24 06:30 Albumin 4.1 g/dL (3.5-5.2) 09/24/24 06:30 Globulin 2.8 g/dL (1.3-4.6) 09/24/24 06:30 Urine Color Yellow (Yellow) 09/24/24 07:02 Urine Appearance Clear (CLEAR) 09/24/24 07:02 Urine pH 6.5 (5-7) 09/24/24 07:02 Ur Specific Boswell 1.021 (1.005-1.030) 09/24/24 07:02 Urine Protein Trace (Negative) A 09/24/24 07:02 Urine Glucose (UA) Negative (Normal) 09/24/24 07:02 Urine Ketones Trace (Negative) 09/24/24 07:02 Urine Blood Negative (Negative) 09/24/24 07:02 Urine Nitrate Negative (Negative) 09/24/24 07:02 Urine Bilirubin Negative (Negative) 09/24/24 07:02 Urine Urobilinogen 0.2 mg/dL (Negative) 09/24/24 07:02 Ur Leukocyte Esterase Negative (Negative) 09/24/24 07:02 Urine RBC 0-2 /hpf (0-2) 09/24/24 07:02 Urine WBC 0-5 /hpf (0-5) 09/24/24 07:02 Ur Squamous Epith Cells 6-10 /hpf (0-5) 09/24/24 07:02 Amorphous Sediment Not Reportable 09/24/24 07:02 Urine Bacteria 2+ /hpf (NONE) H 09/24/24 07:02 Hyaline Casts 0-4 /lpf H 09/24/24 07:02 Ethyl Alcohol < 10 mg/dL (0-10) 09/24/24 06:30 All radiology interpretation(s) finalized by discharge Discharge Plan Discharge Patient Disposition: Home Clinical Impression: Alcohol abuse, Fall Condition: Stable Prescriptions: New ondansetron HCl 4 mg tablet 4 mg PO Q6H PRN (Reason: nausea and vomiting) Qty: 20 0RF No Action fluoxetine 20 mg capsule 20 mg PO DAILY ibuprofen [Advil] 200 mg Tablet 600 mg PO Q6H PRN (Reason: Fever Or Pain) norgestimate-ethinyl estradiol [Tri-Sprintec (28)] 0.18/0.215/0.25 mg-35 mcg (28) tablet 1 tab PO DAILY Discharge Orders: Discharge ED (Routine); Ordered 09/24/24 Ordered By: Enrique Gorman Referrals: Matt Ray MD [Primary Care Provider, Family Practice] Discharge Diet: Usual diet Discharge Activity: Resume usual activity Patient Instructions: Abuse of Alcohol (ED), Opioid Safety, Pain Management, Patient Portal & Mikayla Instructions Print Language: Croatian Coding Level of Care Code 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
--- NOTE | 2024-09-24 06:33 | CTR_ITS ---
PROCEDURE INFORMATION: Exam: CT Cervical Spine Without Contrast Exam date and time: 09/24/2024 6:51 AM Age: 23 years old Clinical indication: Pain and injury or trauma; Fall; Blunt trauma; Neck pain TECHNIQUE: Imaging protocol: Computed tomography of the cervical spine without contrast. Radiation optimization: All CT scans at this facility use at least one of these dose optimization techniques: automated exposure control; mA and/or kV adjustment per patient size (includes targeted exams where dose is matched to clinical indication); or iterative reconstruction. COMPARISON: CT cervical spin wo con* [id number] 01/03/2020 5:32 PM RADIATION DOSE METRICS: Total DLP (mGy-cm): 143.27 FINDINGS: Bones/joints: No acute fracture. Normal alignment. There is straightening of cervical lordosis. C2-C3: No significant disc bulge or herniation. No severe spinal canal stenosis. No significant neural foraminal narrowing. C3-C4: No significant disc bulge or herniation. No severe spinal canal stenosis. No significant neural foraminal narrowing. C4-C5: No significant disc bulge or herniation. No severe spinal canal stenosis. No significant neural foraminal narrowing. C5-C6: No significant disc bulge or herniation. No severe spinal canal stenosis. No significant neural foraminal narrowing. C6-C7: No significant disc bulge or herniation. No severe spinal canal stenosis. No significant neural foraminal narrowing. C7-T1: No significant disc bulge or herniation. No severe spinal canal stenosis. No significant neural foraminal narrowing. Lungs: Lung apices are normal. Soft tissues: Unremarkable. CT/CT cervical spin wo con* [id number] IMPRESSION: No acute cervical spine fracture.
[2024-09-24 06:54] LABS: Hematocrit 36.5 % (36-47); Hemoglobin 11.90 g/dL (11.27-16.99); Mean Corpuscular HGB Conc 32.6 g/dL (30-55); Mean Corpuscular Hemoglobin 29.8 pg (27-33); Mean Corpuscular Volume 91.5 fl (85-98); Nucleated Red Blood Cells % 0 %; Platelet Count 286 10^3/cmm (157-399); Red Blood Count 3.99 10^6/uL (3.85-5.65); White Blood Count 10.17 10^3/uL (3.29-11.43)
[2024-09-24 07:07] LABS: Alanine Aminotransferase 22 U/L (0-33); Albumin Level 4.1 g/dL (3.5-5.2); Alkaline Phosphatase 59 U/L (35-105); Anion Gap 18.7 (5-19); Aspartate Amino Transferase 24 U/L (0-32); Blood Urea Nitrogen 9 mg/dL (6-20); Calcium 8.7 mg/dL (8.5-10.5); Carbon Dioxide 24 mmol/L (22-29); Chloride 99 mmol/L (98-107); Creatinine Clr Calc Pharmacy 106.7539; Globulin 2.8 g/dL (1.3-4.6); Glucose 95 mg/dL (65-115); Osmolality Calculated 284 mOsm/kg (285-295); Potassium 3.7 mmol/L (3.5-5.1); Sodium 138 mmol/L (136-145); Total Protein 6.9 g/dL (6.6-8.7)
[2024-09-24 07:10] LABS: Alcohol Level < 10 mg/dL (0-10)
[2024-09-24 07:15] LABS: Glucose Urine UA Negative (Normal); Nitrate Urine Negative (Negative); Specific Gravity, Urine 1.021 (1.005-1.030)
[2024-09-24 07:20] LABS: Add Urine Microscopic? YES
[2024-09-24 08:00] VITALS: BP 118/72; PULSE 85; RESP 17; O2SAT 99
== END 2024-09-24 08:46 | disposition home or self-care (01) ==
PROVIDERS: Emergency Provider Family Medicine; PCP Family Medicine
DX: F10.10 Alcohol abuse, uncomplicated (principal); W19.XXXA Unspecified fall, initial encounter
CPT/HCPCS: 70450; 71045; 72125; 80053; 80307; 81001; 85025; 99284